=== PATIENT | male | born 1930 | race Caucasian/White ===

== ENCOUNTER 2016-11-14 02:31 | Emergency (ER) | payer MEDICARE, OTHER ==
[~2016-11-14] VITALS: Ht 182.9 cm; Wt 108.9 kg
[~2016-11-14 02:31] MED LIST: ACET325T49; ACET650S13; ALPR-557 PO; ALPR.25T; ALPR.25T PO; ALPR.5T; ALPR0.2550 PO; AML5T; AML5T PO; AMLO1CAP4 PO; AMLO5TAB2 PO; ASCO500T20 PO; BSC10SU; CALC-656 PO; CALC-793 PO; CALC1TAB88; CEFD300C3 PO; CENTRUM SILVER PO; CLD600T; CLON1TAB36; CLPD75T PO; DCS100C; ESCT10T; ESCT10T PO; FRS325T; FSNP20T; GARLIC; GFN600TCR; HYDR-3714; LEVO500T69 PO; LISI40TA PO; LOTREL; LVF500T; LVF500T PO; LYCOPENE; MAGN-47; MECL-124 PO; MECL25TA56 PO; METH4TAB PO; METR500T PO; MULT-974 PO; MULT1TAB63; NAPR220T76 PO; NEOM15OI26; PHEN10TA PO; PHN100C; PNT40TEC; POTA10CA16; PS30T; SCOP1PAT TD; SERT25TA PO; SULF1TAB35 PO; THM100T; WRF5T PO; [UNRECOGNIZED DRUG - CODE]; [UNRECOGNIZED DRUG - OTHER]
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
--- OUTSIDE RECORDS SUMMARY | 2016-11-14 02:38 | XMS REPORT | Continuity of Care Document ---
Author Author [facility] Organization [facility] Address Unknown Phone Unavailable Support Name Relationship Address Phone CAR HARRIS MD Caregiver [address], [address] [place] [address] MIRYAM ARVIZU DO Caregiver [address] [place] [address] CATA MILAN Next Of Kin [address] [place] [address] Insurance Providers Payer Name Policy Number Subscriber Name Relationship [employer] [id number] Armando Milan 17 Self / Same As Patient Enter Insurance Name [id number] Armando Milan 17 Self / Same As Patient Advance Directives Directive Response Recorded Date/Time Advance Directives Yes 09/29/14 9:20am Health Care Power of Complaint Manager Kwesi ELMORET 09/29/14 9:20am Organ Donor No 09/29/14 9:20am Resuscitation Status Full Code 09/29/14 9:20am Problems Medical Problems Problem Onset Date Status Bee sting Unknown Active Contusion of hip, right Unknown Active Medications Medication Dose Route Sig Days/Qty Instructions Order Date Discontinued Date Status Escitalopram Oxalate 05/22/07 04/26/10 Discontinued Amlodipine Besylate 05/22/07 05/11/08 Discontinued [Lotrel] 05/22/07 02/08/08 Discontinued Thiamine HCl 05/22/07 02/08/08 Discontinued Calcium/Vitamin D 05/22/07 10/21/09 Discontinued Clonazepam 05/22/07 02/08/08 Discontinued Alprazolam 05/22/07 02/08/08 Discontinued Fosinopril Sodium 05/22/07 10/21/09 Discontinued Multivitamins 05/22/07 02/08/08 Discontinued [Centrum Silver] 1 Tab PO DAILY 02/08/08 05/08/14 Discontinued Pseudoephedrine HCl 02/08/08 05/11/08 Discontinued Guaifenesin 02/08/08 05/11/08 Discontinued [Ec Garlic] 02/08/08 05/11/08 Discontinued Escitalopram Oxalate 02/08/08 05/11/08 Discontinued [Co Q 10 Enzyme] 02/08/08 05/03/09 Discontinued Alprazolam 02/08/08 04/26/10 Discontinued [Garlic Odorless] 05/11/08 04/26/10 Discontinued [Lycopene] 05/11/08 10/21/09 Discontinued [Lotrel] 05/11/08 10/21/09 Discontinued Trimethoprim/Sulfamethoxazole 1 Each PO TWICE A DAY 20 Qty FOR INFECTION 05/03/09 11/16/09 Discontinued Methylprednisolone 0 PO DIRECTED 1 Qty 05/03/09 11/16/09 Discontinued Levetiracetam (Keppra) 10/21/09 04/26/10 Discontinued Amlodipine Besylate 5 Mg PO DAILY 10/21/09 10/09/10 Discontinued Lisinopril (Zestril) 40 Mg PO DAILY 10/21/09 05/30/11 Discontinued Docusate Sodium 10/21/09 04/26/10 Discontinued Levofloxacin 10/21/09 04/26/10 Discontinued Potassium Chloride 10/21/09 04/26/10 Discontinued Magnesium Hydroxide 10/21/09 04/26/10 Discontinued Warfarin Sodium 5 Mg PO DAILY 10/21/09 05/08/14 Discontinued Ferrous Sulfate 10/21/09 04/26/10 Discontinued Pantoprazole Sodium 10/21/09 04/26/10 Discontinued Acetaminophen 10/21/09 04/26/10 Discontinued Acetaminophen 10/21/09 04/26/10 Discontinued Acetaminophen/Hydrocodone Bitart 10/21/09 04/26/10 Discontinued Bisacodyl 10/21/09 04/26/10 Discontinued Pseudoephedrine Hcl 10/21/09 04/26/10 Discontinued Neomycin/Polymyxin/Bacitracin 10/21/09 04/26/10 Discontinued Calcium Carbonate/Vitamin D3 10/21/09 04/26/10 Discontinued Phenytoin Sodium 11/16/09 04/26/10 Discontinued Meclizine HCl 1 Each PO QID PRN 60 Qty 11/16/09 04/26/10 Discontinued Alprazolam 1 Tab PO BEDTIME 04/26/10 05/08/14 Discontinued Calcium/Vitamin D 1 Tab PO DAILY 10/09/10 05/08/14 Discontinued Amlodipine/Benazepril HCl 1 Each PO DAILY 10/09/10 03/07/12 Discontinued Phenylephrine Hcl 10 Mg PO NEEDED 10/09/10 03/07/12 Discontinued Alprazolam 1 Each PO NEEDED 10/09/10 03/07/12 Discontinued Naproxen Sodium 220 Mg PO DAILY PRN PAIN 10/09/10 Active Escitalopram Oxalate 1 Each PO NEEDED 10/09/10 02/06/11 Discontinued Sertraline Hcl 25 Mg PO DAILY 10/09/10 05/30/11 Discontinued Sertraline HCl 25 Mg PO DAILY 02/06/11 Active Scopolamine HCl 1 Ea TD Q3D 3 Qty FOR DIZZINESS 02/06/11 03/07/12 Discontinued Meclizine HCl 1 - 2 Tab PO Q 4-6 HOURS PRN 30 Qty 02/06/11 03/07/12 Discontinued Scopolamine HCl 1 Ea TD Q3D 3 Qty FOR DIZZINESS 02/20/11 03/07/12 Discontinued Meclizine HCl 1 Each PO QID PRN 30 Qty 02/20/11 05/08/14 Discontinued Amlodipine Besylate (Norvasc 5 Mg) 5 Mg PO DAILY 03/07/12 Active Metronidazole 1 Each PO THREE TIMES A DAY 30 Qty FOR INFECTION 12/21/12 04/08/14 Discontinued Levofloxacin 1 Each PO DAILY 10 Qty 12/21/12 04/08/14 Discontinued Alprazolam 0.25 Mg PO TWICE A DAY PRN ANXIETY 05/08/14 Active Calcium Carbonate/Vitamin D3 1 Tab PO DAILY 05/08/14 Active Clopidogrel Bisulfate 75 Mg PO DAILY 05/08/14 Active Multivitamin 1 Tab PO DAILY 05/08/14 Active Ascorbic Acid 500 Mg PO DAILY 05/08/14 Active Levofloxacin 500 Mg PO DAILY@11 7 Qty 05/09/14 Active Cefdinir (Omnicef) 1 Each PO TWICE A DAY 20 Qty 05/10/14 Active Social History Social History Problem Response Recorded Date/Time Alcohol Use Denies Use 09/29/2014 9:20am Recreational Drug Use No 09/29/2014 9:20am Recent Foreign Travel No 05/15/2014 3:11pm Recent Infectious Disease Exposure No 05/15/2014 3:11pm Hospitalization with Isolation Denies 05/15/2014 3:11pm Smoking Status Never a Smoker 09/29/2014 9:20am Query Response Start Date Stop Date Smoking Status Never a Smoker Hospital Discharge Instructions No hospital discharge instructions. Plan of Care No plan of care. Functional Status No functional status results. Allergies, Adverse Reactions, Alerts Allergen Type Severity Reaction Status Last Updated Penicillins ([id number]) Allergy Mild RASH Active 03/13/12 Sulfa (Sulfonamide Antibiotics) ([id number]) Allergy Unknown Active 01/07 Tetanus Vaccines & Toxoid ([id number]) Allergy Unknown Active 05/01/10 morphine Adverse Reaction Mild N & V Active 05/30/11 meperidine Allergy Unknown Active 05/01/10 latex Allergy Unknown Active 05/22/07 ALLERGY TO TAPE & PLASTIC TAPE Allergy Intermediate SKIN BREAKS OUT Active 05/30/11 EPIDURAL Allergy Unknown Active 05/30/11 Immunizations Name Given Type Date of Pneumonia Vaccine 09/19/09 Historical Date of Influenza Vaccine 06/19/14 Historical Vital Signs Acute Vital Signs Vital Response Date/Time Temperature (Fahrenheit) 97.4 degrees F (97.6 - 99.5) Temperature (Calculated Celsius) 36.57787 degrees C (36.4 - 37.5) Temperature Source Temporal Pulse Rate (adult) 62 bpm (60 - 90) Respiratory Rate 20 bpm (12 - 24) O2 Sat by Pulse Oximetry 92 % (88 - 100) Blood Pressure 173/99 mm Hg Blood Pressure 173/99 mm Hg Pain Pain Intensity 0 Pain Pain Intensity 0 Height (Feet) 5 feet Height (Inches) 10 inches Height (Calculated Centimeters) 177.004460 cm Weight (Pounds) 180 pounds Weight (Calculated Kilograms) 81.242718 kilograms Calculated BMI 25.82 Results Laboratory Results Test Name Result Units Flags Reference Collection Date/Time Result Date/ Time Comments White Blood Count 5.7 10^3/uL 4.3-11.0 09/29/2014 9:26am 09/29/2014 9: 37am Red Blood Count 5.24 10^6/uL 4.35-5.85 09/29/2014 9:26am 09/29/2014 9: 37am Hemoglobin 16.4 G/DL 13.3-17.7 09/29/2014 9:26am 09/29/2014 9:37am Hematocrit 48 % 40-54 09/29/2014 9:09/29/2014 9:37am Mean Corpuscular Volume 91 FL 80-99 09/29/2014 9:09/29/2014 9: 37am Mean Corpuscular Hemoglobin 31 PG 25-34 09/29/2014 9:09/29/2014 9: 37am Mean Corpuscular Hemoglobin Concent 35 G/DL 32-36 09/29/2014 9:07/2015 9:37am Red Cell Distribution Width 13.6 % 10.0-14.5 09/29/2014 9:2014 9:37am Platelet Count 183 10^3/uL 130-400 09/29/2014 9:09/29/2014 9:37am Mean Platelet Volume 10.1 FL 7.4-10.4 09/29/2014 9:09/29/2014 9: 37am Neutrophils (%) (Auto) 73 % 42-75 09/29/2014 9:09/29/2014 9:37am Lymphocytes (%) (Auto) 16 % 12-44 09/29/2014 9:09/29/2014 9:37am Monocytes (%) (Auto) 10 % 0-12 09/29/2014 9:09/29/2014 9:37am Eosinophils (%) (Auto) 1 % 0-10 09/29/2014 9:09/29/2014 9:37am Basophils (%) (Auto) 0 % 0-10 09/29/2014 9:09/29/2014 9:37am Neutrophils # (Auto) 4.1 X 10^3 1.8-7.8 09/29/2014 9:09/29/2014 9: 37am Lymphocytes # (Auto) 0.9 X 10^3 L 1.0-4.0 09/29/2014 9:09/29/2014 9: 37am Monocytes # (Auto) 0.5 X 10^3 0.0-1.0 09/29/2014 9:09/29/2014 9: 37am Eosinophils # (Auto) 0.1 10^3/uL 0.0-0.3 09/29/2014 9:09/29/2014 9 :37am Basophils # (Auto) 0.0 10^3/uL 0.0-0.1 09/29/2014 9:09/29/2014 9: 37am Sodium Level 143 MMOL/L 135-145 09/29/2014 9:09/29/2014 10:00am Potassium Level 3.9 MMOL/L 3.6-5.0 09/29/2014 9:09/29/2014 10: 00am Chloride Level 110 MMOL/L H 98-107 09/29/2014 9:09/29/2014 10:00am Carbon Dioxide Level 22 MMOL/L 21-32 09/29/2014 9:09/29/2014 10: 00am Blood Urea Nitrogen 25 MG/DL H 7-18 09/29/2014 9:09/29/2014 10:00am Creatinine 0.98 MG/DL 0.60-1.30 09/29/2014 9:09/29/2014 10:00am BUN/Creatinine Ratio 09/29/2014 9:09/29/2014 10:00am Estimat Glomerular Filtration Rate > 60 09/29/2014 9:2014 10:00am GFR INTERPRETIVE DATA UNITS FOR ESTIMATED GFR (eGFR): mL/min/1.73 M2 REFERENCE RANGE FOR ESTIMATED GFR (eGFR) eGFR NORMAL eGFR >60 MODERATELY DECREASED eGFR 30-59 SEVERLY DECREASED eGFR 15-29 KIDNEY FAILURE <15 (OR DIALYSIS) Glucose Level 98 MG/DL 70-105 09/29/2014 9:09/29/2014 10:00am Calcium Level 9.4 MG/DL 8.5-10.1 09/29/2014 9:09/29/2014 10:00am Total Bilirubin 0.9 MG/DL 0.1-1.0 09/29/2014 9:09/29/2014 10:00am Alkaline Phosphatase 68 U/L 40-136 09/29/2014 9:09/29/2014 10: 00am Aspartate Amino Transf (AST/SGOT) 19 U/L 5-34 09/29/2014 9:2014 10:00am Alanine Aminotransferase (ALT/SGPT) 15 U/L 0-55 09/29/2014 9:26am 09/29 10:00am Total Protein 6.5 G/DL 6.4-8.2 09/29/2014 9:26am 09/29/2014 10:00am Albumin 3.8 G/DL 3.2-4.5 09/29/2014 9:26am 09/29/2014 10:00am Procedures No known history of procedures. Encounters Encounter Location Date/Time Registered Emergency Room [facility] 09/29/14 9:21am Recent Diagnosis
[2016-11-14] MEDS ORDERED: LIDOCAINE PF 1% 5 ML (XYLOCAINE) AMP INJ ONE (03:00)
[2016-11-14] MEDS ORDERED: ACETAMINOPHEN 500 MG TAB (TYLENOL) ONE (04:15)
[2016-11-14] MEDS ORDERED: ACETAMINOPHEN 500 MG TAB (TYLENOL) PO ONE (04:30)
[2016-11-14 04:36] VITALS: BP 129/68
--- NOTE | 2016-11-14 08:31 | Diagnostic Imaging Report ---
PROCEDURE: CT head, face, and cervical spine without contrast. TECHNIQUE: Multiple contiguous axial images were obtained through the head, neck, and facial bones without the use of intravenous contrast. Sagittal and coronal reformations through the cervical spine and facial bones were also performed. INDICATION: Head, neck and face pain after a fall. COMPARISON: 04/04/2015. FINDINGS: There is prominence of ventricles and sulci. There is mild chronic microvascular ischemic disease. There is no hydrocephalus. There is no midline shift. There is no intracranial mass, hemorrhage or extra-axial fluid collection. There are no displaced facial bone fractures. The frontal, ethmoid, sphenoid and maxillary sinuses are clear. The mastoid air cells are clear. The zygomatic arches are intact. The globes and intraorbital structures are unremarkable. The nasal bones are intact. There is straightening of normal cervical lordosis. The vertebral body heights are well-maintained. There is multilevel degenerative disc disease particularly at C4-5, C5-6 and C6-7. This is associated with endplate sclerosis and marginal osteophytosis. There is no fracture or traumatic subluxation. The odontoid is intact. The lateral masses are well-aligned. The prevertebral soft tissues are within normal limits. The lung apices are clear. IMPRESSION: Atrophy and mild chronic microvascular ischemic disease without acute intracranial abnormality. No displaced facial bone fractures. Moderate cervical spondylosis and multilevel degenerative disc disease without acute fracture or traumatic subluxation. Dictated by: Dictated on workstation # [id number]
== END 2016-11-14 04:25 ==
LOC: EDUNIT# 02:31 → ER 02:33
DX: S01.112A Laceration without foreign body of left eyelid and periocular area, initial encounter (principal); M47.812 Spondylosis without myelopathy or radiculopathy, cervical region; M50.321 Other cervical disc degeneration at C4-C5 level; Y92.121 Bathroom in nursing home as the place of occurrence of the external cause; W18.30XA Fall on same level, unspecified, initial encounter; Y99.8 Other external cause status
CPT/HCPCS: 12053; 70450; 70486; 72125

== ENCOUNTER → 2017-01-03 | Outpatient (CLI) | payer MEDICARE, OTHER ==
--- NOTE | 2017-01-03 10:57 | Diagnostic Imaging Report ---
EXAMINATION: Modified barium swallow. Indication: Dysphagia Different consistencies of fluid and food was given mixed with barium and swallowing was visualized under fluoroscopy. FLUOROSCOPY TIME: One minute and 18 seconds FINDINGS: There is aspiration seen with thin liquids. Minimal transient penetration with thick liquids. IMPRESSION: Aspiration seen with thin liquids. Please refer to speech therapist's report for additional details . Dictated by: Dictated on workstation # [id number]
== END ==
LOC: RAD 10:06
PROVIDERS: ATTEND Nurse Practitioner
DX: T17.908A Unspecified foreign body in respiratory tract, part unspecified causing other injury, initial encounter (principal); Y84.4 Aspiration of fluid as the cause of abnormal reaction of the patient, or of later complication, without mention of misadventure at the time of the procedure
CPT/HCPCS: 74230

== ENCOUNTER → 2017-05-13 | Outpatient (CLI) | payer MEDICARE, OTHER | LOC: CARD 11:42 | PROVIDERS: ATTEND Physician Assistant | DX: I25.10 Atherosclerotic heart disease of native coronary artery without angina pectoris (principal); I10 Essential (primary) hypertension; I47.2 Ventricular tachycardia; F41.9 Anxiety disorder, unspecified | CPT/HCPCS: 93306 ==

== ENCOUNTER 2018-03-05 09:00 | Emergency (ER) | payer MEDICARE, OTHER ==
[~2018-03-05] VITALS: Ht 182.9 cm; Wt 97.1 kg
[2018-03-05 10:48] VITALS: BP 129/72
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
--- NOTE | 2018-03-05 11:11 | Diagnostic Imaging Report ---
Procedure: CT head without contrast. Technique: Multiple contiguous axial images were obtained through the brain without the use of intravenous contrast. Indication: Patient fell this morning striking right side of head with positive loss of consciousness, head injury. Comparison: 11/14/2016. Discussion: Diffuse brain volume loss is stable, likely age related. White matter hypoattenuation is nonspecific though not greater than expected for age related chronic small vessel ischemic disease, stable. No acute intracranial hemorrhage, mass, midline shift, hydrocephalus. The orbits, sinuses, mastoid air cells, and calvarium are unremarkable. Impression: 1. Senescent changes as described. No acute intracranial abnormality. Dictated by: Dictated on workstation # [id number]
--- NOTE | 2018-03-05 11:15 | Diagnostic Imaging Report ---
PATIENT HISTORY: Fall with right knee pain. 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 No hardware complication is seen. No acute fracture is seen in the right knee. Alignment appears normal. There is a small right knee joint effusion. There is calcific atherosclerosis. Joint bodies are seen posteriorly. IMPRESSION: 1. Right total knee arthroplasty without hardware complication or acute osseous abnormality seen. 2. Small right knee joint effusion. Dictated by: Dictated on workstation # [id number]
--- OUTSIDE RECORDS SUMMARY | 2018-03-05 16:35 | XMS REPORT | Continuity of Care Document ---
Author Author [facility] Address Unknown Phone Unavailable Allergies Active Description Code Type Severity Reaction Onset Reported/Identified Relationship to Patient Clinical Status Yes latex [id number] Drug Allergy Unknown N/A 05/22/2007 Yes meperidine [id number] Drug Allergy Unknown N/A 05/01/2010 Yes Sulfa (Sulfonamide Antibiotics) [id number] Drug Allergy Unknown N/A 2009 Yes Tetanus Vaccines Toxoid [id number] Drug Allergy Unknown N/A 05/01/2010 Yes Tetanus Vaccines and Toxoid [id number] Drug Allergy Unknown N/A 2009 Yes morphine Drug Allergy N/A N/A 05/14/2011 Yes Penicillins Drug Allergy N/A N/A 05/14/2011 Yes morphine Drug Allergy 05/14/2011 Yes Penicillins Drug Allergy 05/14/2011 Yes ALLERGY TO TAPE PLASTIC TAPE ALLERGY TO TAPE PLASTIC TAPE Moderate SKIN BREAKS OUT 05/30/2011 Yes morphine [id number] Drug Allergy Mild N V 05/30/2011 Yes EPIDURAL EPIDURAL Unknown N/A 05/30/2011 Yes Penicillins [id number] Drug Allergy Mild RASH 03/13/2012 Yes latex Drug Allergy N/A N/A 06/20/2014 Medications There is no data. 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 06/03/2010 MARY GRACE DON APRN 300.00 AN ANXIETY UNSPEC 06/03/2010 MARY GRACE DON APRN 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 06/03/2010 MARY GRACE DON APRN 300.00 AN ANXIETY UNSPEC 06/03/2010 MARY GRACE DON APRN 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 06/03/2010 MARY GRACE DON APRN 300.00 AN ANXIETY UNSPEC 06/03/2010 MARY GRACE DON APRN 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 06/03/2010 MARY GRACE DON APRN 300.00 AN ANXIETY UNSPEC 06/03/2010 MARY GRACE DON APRN 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 06/03/2010 MARY GRACE DON APRN 300.00 AN ANXIETY UNSPEC 07/03/2010 MARY GRACE DON APRN 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 ANXIETY 07/03/2010 MARY GRACE DON APRN 311 DEPRESSIVE DISORDER NOS 07/03/2010 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 ANXIETY 07/03/2010 311 DEPRESSIVE DISORDER NOS 07/03/2010 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 ANXIETY 07/03/2010 311 DEPRESSIVE DISORDER NOS 07/03/2010 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 ANXIETY 07/03/2010 311 DEPRESSIVE DISORDER NOS 07/03/2010 MARY GRACE DON APRN 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 ANXIETY 07/03/2010 MARY GRACE DON APRN 311 DEPRESSIVE DISORDER NOS 07/03/2010 MARY GRACE DON APRN 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 ANXIETY 07/03/2010 MARY GRACE DON APRN 311 DEPRESSIVE DISORDER NOS 07/03/2010 MARY GRACE DON APRN 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 ANXIETY 07/03/2010 MARY GRACE DON APRN 311 DEPRESSIVE DISORDER NOS 07/03/2010 MARY GRACE DON APRN 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 ANXIETY 07/03/2010 MARY GRACE DON APRN 311 DEPRESSIVE DISORDER NOS 07/03/2010 MARY GRACE DON APRN 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 ANXIETY 07/03/2010 MARY GRACE DON APRN 311 DEPRESSIVE DISORDER NOS 09/03/2010 MARY GRACE DON APRN 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 09/03/2010 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 09/03/2010 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 09/03/2010 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 09/03/2010 ARIAN RIVAS, MARY GRACE BELLO 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 09/03/2010 ARIAN RIVAS, MARY GRACE BELLO 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 09/03/2010 ARIAN RIVAS, MARY GRACE BELLO 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 09/03/2010 ARIAN RIVAS, MARY GRACE BELLO 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 09/03/2010 ARIAN RIVAS, MARY GRACE BELLO 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 05/30/2011 Ot 429.9 HEART DISEASE NOS 05/30/2011 Ot 435.9 TRANS CEREB ISCHEMIA NOS 05/30/2011 Ot 780.79 OTH MALAISE FATIGUE 05/30/2011 Ot V58.61 ANTICOAGULANTS,LT,CURRENT USE 05/30/2011 Ot V58.69 OTH MED,LT, CURRENT USE 03/13/2012 Ot 333.94 RESTLESS LEGS SYNDROME 03/13/2012 Ot 401.9 HYPERTENSION NOS 03/13/2012 Ot 414.01 CORONARY ATHEROSCLEROSIS OF [place] CORON 03/13/2012 Ot 440.1 RENAL ARTERY ATHEROSCLER 03/13/2012 Ot 530.81 ESOPHAGEAL REFLUX 03/13/2012 Ot 715.90 OSTEOARTHROS NOS-UNSPEC 03/13/2012 Ot 735.3 HALLUX MALLEUS 03/13/2012 Ot V45.81 AORTOCORONARY BYPASS 03/13/2012 Ot V57.1 PHYSICAL THERAPY NEC 12/21/2012 Ot 558.9 NONINF GASTROENTERIT NEC 12/21/2012 Ot 599.0 URIN TRACT INFECTION NOS 12/21/2012 Ot 787.91 DIARRHEA 12/21/2012 Ot V58.61 ANTICOAGULANTS,LT,CURRENT USE 12/21/2012 Ot V58.69 OTH MED,LT, CURRENT USE 04/08/2014 HANNAH SIDDIQUI DO Ot 244.9 HYPOTHYROIDISM NOS 04/08/2014 HANNAH SIDDIQUI DO Ot 300.00 ANXIETY STATE NOS 04/08/2014 HANNAH SIDDIQUI DO Ot 311 DEPRESSIVE DISORDER NEC 04/08/2014 HANNAH SIDDIQUI DO Ot 414.01 CORONARY ATHEROSCLEROSIS OF [place] CORON 04/08/2014 HANNAH SIDDIQUI DO Ot 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 04/08/2014 HANNAH SIDDIQUI DO Ot 530.81 ESOPHAGEAL REFLUX 04/08/2014 HANNAH SIDDIQUI DO Ot 716.90 ARTHROPATHY NOS-UNSPEC 04/08/2014 HANNAH SIDDIQUI DO Ot 729.5 PAIN IN LIMB 04/08/2014 HANNAH SIDDIQUI DO Ot 729.81 SWELLING OF LIMB 04/08/2014 HANNAH SIDDIQUI DO Ot 780.4 DIZZINESS AND GIDDINESS 04/08/2014 HANNAH SIDDIQUI DO Ot 782.3 EDEMA 04/08/2014 HANNAH SIDDIQUI DO Ot V12.54 PERSONAL HX OF TIA, CEREBRAL INFARCTION 04/08/2014 HANNAH SIDDIQUI DO Ot 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 04/08/2014 HANNAH SIDDIQUI DO Ot V45.89 POSTSURGICAL STATES NEC 04/08/2014 HANNAH SIDDIQUI DO Ot V58.61 ANTICOAGULANTS,LT,CURRENT USE 04/08/2014 HANNAH SIDDIQUI DO Ot V58.69 OTH MED,LT,CURRENT USE 05/09/2014 CHRIS FERRELL MD Ot 272.4 HYPERLIPIDEMIA NEC/NOS 05/09/2014 CHRIS FERRELL MD Ot 401.9 HYPERTENSION NOS 05/09/2014 CHRIS FERRELL MD Ot 414.01 CORONARY ATHEROSCLEROSIS OF [place] CORON 05/09/2014 CHRIS FERRELL MD Ot 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 NODE DYSFUNCT 05/09/2014 CHRIS FERRELL MD Ot 996.72 OTH COMPLICATIONS DUE TO OTH CARD DEVICE 05/09/2014 CHRIS FERRELL MD Ot E878.1 ABN REACT-ARTIF IMPLANT 05/09/2014 CHRIS FERRELL MD Ot 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.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 05/09/2014 CHRIS FERRELL MD, Ot V58.61 ANTICOAGULANTS,LT,CURRENT USE 05/09/2014 CHRIS FERRELL MD, Ot V58.69 OTH MED,LT,CURRENT USE 05/10/2014 Ot 709.8 SKIN DISORDERS NEC 05/10/2014 Ot V45.89 POSTSURGICAL STATES NEC 05/12/2014 CAR HARRIS MD Ot 989.5 TOXIC EFFECT VENOM 05/12/2014 CAR HARRIS MD Ot E000.8 OTHER EXTERNAL CAUSE STATUS 05/12/2014 CAR HARRIS MD Ot E905.3 HORNET/WASP/BEE STING 05/15/2014 SIVA WHALEN APRN Ot 719.45 JOINT PAIN-PELVIS 05/15/2014 SIVA WHALEN APRN Ot 924.01 CONTUSION OF HIP 05/15/2014 SIVA WHALEN APRN Ot E000.8 OTHER EXTERNAL CAUSE STATUS 05/15/2014 SIVA WHALEN APRN Ot E928.9 ACCIDENT NOS 08/14/2014 MIRYAM ARVIZU DO Ot 443.9 09/09/2014 MIRYAM ARVIZU DO Ot 443.9 09/29/2014 CAR HARRIS MD Ot 723.1 CERVICALGIA 09/29/2014 CAR HARRIS MD Ot 924.8 MULTIPLE CONTUSIONS NEC 09/29/2014 CAR HARRIS MD Ot 959.9 INJURY-SITE NOS 09/29/2014 CAR HARRIS MD Ot E000.8 OTHER EXTERNAL CAUSE STATUS 09/29/2014 CAR HARRIS MD Ot E849.0 ACCIDENT IN HOME 09/29/2014 CAR HARRIS MD Ot E888.9 FALL NOS 03/20/2015 CHRIS FERRELL MD Ot 401.9 03/20/2015 CHRIS FERRELL MD Ot 414.00 03/20/2015 CHRIS FERRELL MD Ot 427.81 03/20/2015 CHRIS FERRELL MD Ot 435.9 03/26/2015 CHRIS FERRELL MD Ot 401.9 03/26/2015 CHRIS FERRELL MD Ot 414.00 03/26/2015 CHRIS FERRELL MD Ot 427.81 03/26/2015 CHRIS FERRELL MD Ot 435.9 04/10/2015 CHRIS FERRELL MD Ot 401.9 04/10/2015 CHRIS FERRELL MD Ot 414.00 04/10/2015 CHRIS FERRELL MD Ot 427.81 04/10/2015 CHRIS FERRELL MD Ot 435.9 04/10/2015 CHRIS FERRELL MD Ot 401.9 04/10/2015 CHRIS FERRELL MD Ot 414.00 04/10/2015 CHRIS FERRELL MD Ot 427.81 04/10/2015 GHASSAN MARCANO, CHRIS Gonzalez Ot 435.9 04/28/2015 LUHLUCIANA BUILDING PERFORMANCE SPECIALIST Ot 781.2 04/28/2015 ARVIZULUCIANA BUILDING PERFORMANCE SPECIALIST Ot 784.0 04/28/2015 ARVIZULUCIANA BUILDING PERFORMANCE SPECIALIST Ot V15.88 05/13/2015 ARVIZULUCINAA BUILDING PERFORMANCE SPECIALIST Ot 781.2 05/13/2015 ARVIZULUCIANA BUILDING PERFORMANCE SPECIALIST Ot 784.0 05/13/2015 LUHLUCIANA BUILDING PERFORMANCE SPECIALIST Ot V15.88 03/03/2016 CORINNE ALMARAZ Ot I10 ESSENTIAL (PRIMARY) HYPERTENSION 03/03/2016 CORINNE ALMARAZ Ot I25.10 ATHSCL HEART DISEASE OF [place] CORONARY 03/03/2016 CORINNE ALMARAZ Ot 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 03/03/2016 CORINNE ALMARAZ Ot R06.02 SHORTNESS OF BREATH 03/05/2016 CORINNE ALMARAZ K Ot I10 ESSENTIAL (PRIMARY) HYPERTENSION 03/05/2016 CORINNE ALMARAZ Ot I25.10 ATHSCL HEART DISEASE OF [place] CORONARY 03/05/2016 CORINNE ALMARAZ Ot 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 03/05/2016 CORINNE ALMARAZ Ot R06.02 SHORTNESS OF BREATH 03/24/2016 CORINNE ALMARAZ Ot I10 ESSENTIAL (PRIMARY) HYPERTENSION 03/24/2016 CORINNE ALMARAZ Ot I25.10 ATHSCL HEART DISEASE OF [place] CORONARY 03/24/2016 DANIELA ALMARAZTH K Ot 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 03/24/2016 CORINNE ALMARAZ K Ot R06.02 SHORTNESS OF BREATH 04/05/2016 CORINNE ALMARAZ K Ot I10 ESSENTIAL (PRIMARY) HYPERTENSION 04/05/2016 CORINNE ALMARAZ K Ot I25.10 ATHSCL HEART DISEASE OF [place] CORONARY 04/05/2016 DANIELA ALMARAZTH K Ot 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 04/05/2016 CORINNE ALMARAZ Ot R06.02 SHORTNESS OF BREATH 11/14/2016 MIRYAM AMARAL DO Ot M47.812 SPONDYLOSIS W/O MYELOPATHY OR RADICULOPA 11/14/2016 MIRYAM AMARAL DO Ot 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 11/14/2016 MIRYAM AMARAL DO Ot S01.112A LACERATION W/O FB OF LEFT EYELID AND PER 11/14/2016 MIRYAM AMARAL DO Ot W18.30XA FALL ON SAME LEVEL, UNSPECIFIED, INITIAL 11/14/2016 MIRYAM AMARAL DO Ot Y92.[address] 11/14/2016 MIRYAM AMARAL DO Ot Y99.8 OTHER EXTERNAL CAUSE STATUS 11/14/2016 Ot 553.20 VENTRAL HERNIA NOS 11/14/2016 Ot 562.10 DIVERTICULOSIS COLON (W/O MENT OF HEMORR 11/14/2016 Ot 789.09 ABDOMINAL PAIN, OTHER SPECIFIED SITE 11/14/2016 Ot 735.3 HALLUX MALLEUS 11/14/2016 Ot V72.83 EXAM PRE- OPERATIVE NEC 11/14/2016 Ot V74.8 SCREEN- BACTERIAL DIS NEC 11/14/2016 Ot 719.46 JOINT PAIN-L /LEG 11/14/2016 Ot 729.81 SWELLING OF LIMB 11/14/2016 LUCIANA SHAH REPAIRER [employer] Ot 721.2 THORACIC SPONDYLOSIS 11/14/2016 RIDARIK LUCIANA C REPAIRER [employer] Ot 737.30 IDIOPATHIC SCOLIOSIS 11/14/2016 LUCIANA SHAH Felisha REPAIRER [employer] Ot 789.00 ABDOMINAL PAIN, UNSPECIFIED SITE 11/14/2016 MIRYAM ARVIZU DO Ot 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 11/14/2016 MIRYAM ARVIZU DO Ot 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 11/14/2016 CHRIS FERRELL MD Ot 401.9 HYPERTENSION NOS 11/14/2016 CHRIS FERRELL MD Ot 414.00 CORON ATHEROSCLER NOS TYPE VESSEL, NATIV 11/14/2016 CHRIS FERRELL MD Ot 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 NODE DYSFUNCT 11/14/2016 CHRIS FERRELL MD Ot 435.9 TRANS CEREB ISCHEMIA NOS 11/14/2016 CHRIS FERRELL MD Ot 401.9 HYPERTENSION NOS 11/14/2016 CHRIS FERRELL MD Ot 414.00 CORON ATHEROSCLER NOS TYPE VESSEL, NATIV 11/14/2016 CHRIS FERRELL MD Ot 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 NODE DYSFUNCT 11/14/2016 CHRIS FERRELL MD Ot 435.9 TRANS CEREB ISCHEMIA NOS 11/14/2016 LUCIANA ARVIZU BUILDING PERFORMANCE SPECIALIST Ot 781.2 ABNORMALITY OF GAIT 11/14/2016 LUCIANA ARVIZU BUILDING PERFORMANCE SPECIALIST Ot 784.0 HEADACHE 11/14/2016 LUCIANA ARVIZU BUILDING PERFORMANCE SPECIALIST Ot V15.88 HISTORY OF FALL 11/14/2016 CORINNE ALMARAZ Ot I10 ESSENTIAL (PRIMARY) HYPERTENSION 11/14/2016 CORINNE ALMARAZ Ot I25.10 ATHSCL HEART DISEASE OF [place] CORONARY 11/14/2016 CORINNE ALMARAZ Ot 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 11/14/2016 CORINNE ALMARAZ Ot R06.02 SHORTNESS OF BREATH 11/16/2016 MIRYAM AMARAL DO Ot M47.812 SPONDYLOSIS W/O MYELOPATHY OR RADICULOPA 11/16/2016 MIRYAM AMARAL DO Ot 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 11/16/2016 MIRYAM AMARAL DO Ot S01.112A LACERATION W/O FB OF LEFT EYELID AND PER 11/16/2016 MIRYAM AMARAL DO Ot W18.30XA FALL ON SAME LEVEL, UNSPECIFIED, INITIAL 11/16/2016 MIRYAM AMARAL DO Ot Y92.[address] 11/16/2016 MIRYAM AMARAL DO Ot Y99.8 OTHER EXTERNAL CAUSE STATUS 11/25/2016 Ot 553.20 VENTRAL HERNIA NOS 11/25/2016 Ot 562.10 DIVERTICULOSIS COLON (W/O MENT OF HEMORR 11/25/2016 Ot 789.09 ABDOMINAL PAIN, OTHER SPECIFIED SITE 11/25/2016 Ot 735.3 HALLUX MALLEUS 11/25/2016 Ot V72.83 EXAM PRE- OPERATIVE NEC 11/25/2016 Ot V74.8 SCREEN- BACTERIAL DIS NEC 11/25/2016 Ot 719.46 JOINT PAIN-L /LEG 11/25/2016 Ot 729.81 SWELLING OF LIMB 11/25/2016 ULCIANA SHAH REPAIRER [employer] Ot 721.2 THORACIC SPONDYLOSIS 11/25/2016 LUCIANA SHAH REPAIRER [employer] Ot 737.30 IDIOPATHIC SCOLIOSIS 11/25/2016 LUCIANA SHAH REPAIRER [employer] Ot 789.00 ABDOMINAL PAIN, UNSPECIFIED SITE 11/25/2016 MIRYAM ARVIZU DO Ot 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 11/25/2016 MIRYAM ARVIZU DO Ot 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 11/25/2016 CHRIS FERRELL MD Ot 401.9 HYPERTENSION NOS 11/25/2016 CHRIS FERRELL MD Ot 414.00 CORON ATHEROSCLER NOS TYPE VESSEL, NATIV 11/25/2016 CHRIS FERRELL MD Ot 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 NODE DYSFUNCT 11/25/2016 CHRIS FERRELL MD Ot 435.9 TRANS CEREB ISCHEMIA NOS 11/25/2016 CHRIS FERRELL MD Ot 401.9 HYPERTENSION NOS 11/25/2016 CHRIS FERRELL MD Ot 414.00 CORON ATHEROSCLER NOS TYPE VESSEL, NATIV 11/25/2016 CHRIS FERRELL MD Ot 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 NODE DYSFUNCT 11/25/2016 CHRIS FERRELL MD Ot 435.9 TRANS CEREB ISCHEMIA NOS 11/25/2016 LUCIANA ARVIZU BUILDING PERFORMANCE SPECIALIST Ot 781.2 ABNORMALITY OF GAIT 11/25/2016 LUCIANA ARVIZU BUILDING PERFORMANCE SPECIALIST Ot 784.0 HEADACHE 11/25/2016 LUCIANA ARVIZU BUILDING PERFORMANCE SPECIALIST Ot V15.88 HISTORY OF FALL 11/25/2016 CORINNE ALMARAZ Ot I10 ESSENTIAL (PRIMARY) HYPERTENSION 11/25/2016 CORINNE ALMARAZ Ot I25.10 ATHSCL HEART DISEASE OF [place] CORONARY 11/25/2016 CORINNE ALMARAZ Ot 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 11/25/2016 CORINNE ALMARAZ Ot R06.02 SHORTNESS OF BREATH 12/27/2016 CORINNE ALMARAZ Ot I10 ESSENTIAL (PRIMARY) HYPERTENSION 12/27/2016 MEJIAS-GLEY PA, CORINNE K Ot I25.10 ATHSCL HEART DISEASE OF [place] CORONARY 12/27/2016 CORINNE ALMARAZ Ot 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 12/27/2016 CORINNE ALMARAZ Ot R06.02 SHORTNESS OF BREATH 01/03/2017 YESICA HONG APRN Ot Y84.4 ASPIRATION OF FLUID CAUSE ABN REACT/COMP 01/03/2017 YESICA HONG R REPAIRER [employer] Ot Y84.4 ASPIRATION OF FLUID CAUSE ABN REACT/COMP 01/03/2017 GELY YESICA R REPAIRER [employer] Ot Y84.4 ASPIRATION OF FLUID CAUSE ABN REACT/COMP 01/05/2017 LUANNE HONGN R REPAIRER [employer] Ot T17.908A UNSP FB IN RESP TRACT, PART UNSP CAUSING 01/05/2017 YESICA HONG R REPAIRER [employer] Ot Y84.4 ASPIRATION OF FLUID CAUSE ABN REACT/COMP 01/31/2017 YESICA HONG R REPAIRER [employer] Ot T17.908A UNSP FB IN RESP TRACT, PART UNSP CAUSING 01/31/2017 YESICA HONG R REPAIRER [employer] Ot Y84.4 ASPIRATION OF FLUID CAUSE ABN REACT/COMP 02/21/2017 YESICA HONG R REPAIRER [employer] Ot T17.908A UNSP FB IN RESP TRACT, PART UNSP CAUSING 02/21/2017 YESICA HONG R REPAIRER [employer] Ot Y84.4 ASPIRATION OF FLUID CAUSE ABN REACT/COMP 06/03/2017 CORINNE ALMARAZ Ot F41.9 ANXIETY DISORDER, UNSPECIFIED 06/03/2017 CORINNE ALMARAZ Ot I10 ESSENTIAL (PRIMARY) HYPERTENSION 06/03/2017 CORINNE ALMARAZ Ot I25.10 ATHSCL HEART DISEASE OF [place] CORONARY 06/03/2017 CORINNE ALMARAZ Ot 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 07/04/2017 CORINNE ALMARAZ Ot F41.9 ANXIETY DISORDER, UNSPECIFIED 07/04/2017 CORINNE ALMARAZ Ot I10 ESSENTIAL (PRIMARY) HYPERTENSION 07/04/2017 CORINNE ALMARAZ Ot I25.10 ATHSCL HEART DISEASE OF [place] CORONARY 07/04/2017 CORINNE ALMARAZ Ot 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 Procedures Code Description [place] [address] PSYCH PHARM MGMT 10/09/2012 Results There is no data. Encounters ACCT No. Visit Date/Time Discharge Status Pt. Type Provider Facility Loc./Unit Complaint [id number] 06/20/2014 12:09:00 06/20/2014 23:59:59 CLS Outpatient MARY GRACE DON APRN [id number] 05/15/2014 16:37:00 05/15/2014 23:59:59 CLS Outpatient MARY GRACE DON APRN [id number] 01/18/2014 10:34:00 01/18/2014 23:59:59 CLS Outpatient MARY GRACE DON APRN [id number] 08/31/2013 10:57:00 08/31/2013 23:59:59 CLS Outpatient MARY GRACE DON APRN [id number] 06/13/2013 12:46:00 06/13/2013 23:59:59 CLS Outpatient MARY GRACE DON APRN [id number] 12/23/2012 10:01:00 12/23/2012 23:59:59 CLS Outpatient [id number] 10/09/2012 12:49:00 10/09/2012 23:59:59 CLS Outpatient MARY GRACE DON APRN [id number] 04/19/2013 15:06:00 Document Registration [id number] 02/26/2013 15:06:00 Document Registration [id number] 05/13/2017 11:42:00 05/13/2017 23:59:59 CLS Outpatient CORINNE ALMARAZ [facility] CARD CAD [id number] 01/03/2017 10:06:00 01/03/2017 23:59:59 CLS Outpatient YESICA HONG REPAIRER [employer] [facility] RAD ASPIRATION [id number] 11/14/2016 02:33:00 11/14/2016 04:25:00 DIS Emergency MIRYAM AMARAL DO [facility] ER FALL [id number] 03/02/2016 11:30:00 03/02/2016 23:59:59 CLS Outpatient CORINNE ALMARAZ [facility] CARD CAD,HTN,NSVT ,SOB [id number] 04/04/2015 14:44:00 04/04/2015 23:59:59 CLS Outpatient ARVIZULUCIANA CORDOVA BUILDING PERFORMANCE SPECIALIST [facility] RAD GOIT INSTABILITY HEADACHE [id number] 03/04/2015 11:12:00 03/04/2015 23:59:59 CLS Outpatient CHRIS FERRELL MD [facility] CARD CAD,HTN,SS,TIA [id number] 02/28/2015 11:14:00 02/28/2015 23:59:59 CLS Outpatient DEYSI WARNER REPAIRER [employer] [facility] QUICK [id number] 02/26/2015 08:16:00 02/26/2015 23:59:59 CLS Outpatient CHRIS FERRELL MD [facility] CARD CAD,HTN,SS,TIA [id number] 09/29/2014 09:21:00 09/29/2014 10:58:00 DIS Emergency CAR HARRIS MD [facility] ER ALTERED MENTAL STATUS [id number] 07/22/2014 09:02:00 07/22/2014 23:59:59 CLS Outpatient MIRYAM ARVIZU DO [facility] RAD PVD [id number] 07/16/2014 09:04:00 07/16/2014 23:59:59 CLS Outpatient MIRYAM ARVIZU DO [facility] RAD 443.90,CLAUDICATION [id number] 05/15/2014 14:58:00 05/15/2014 15:59:00 DIS Emergency SIVA WHALEN APRN [facility] ER RIGHT HIP PAIN [id number] 05/12/2014 09:33:00 05/12/2014 11:18:00 DIS Emergency CAR HARRIS MD [facility] ER BEE STING L FOOT [id number] 05/08/2014 07:47:00 05/09/2014 09:10:00 DIS Outpatient CHRIS FERRELL MD [facility] CATH VICKI,BRADYCARDIA,HTN,CAD [id number] 04/08/2014 14:38:00 04/08/2014 17:23:00 DIS Emergency HANNAH SIDDIQUI DO [facility] ER RIGHT LEG PAIN/SWELLING/ BRUISING [id number] 06/05/2013 11:18:00 06/05/2013 23:59:59 CLS Outpatient RIDINGS, LUCIANA Baeza APRN [facility] RAD L ABD PAIN,L SIDE BACK PAIN T12-L2 [id number] 02/02/2013 17:23:00 02/02/2013 23:59:59 CLS Outpatient [id number] 05/10/2014 10:49:00 Document Registration [id number] 12/21/2012 00:04:00 Document Registration [id number] 05/17/2012 16:07:00 Document Registration [id number] 03/13/2012 05:44:00 Document Registration [id number] 03/07/2012 12:52:00 Document Registration [id number] 08/30/2011 11:04:00 Document Registration [id number] 05/30/2011 09:10:00 Document Registration [id number] 04/04/2015 14:45:35 ACT Document Registration
== END 2018-03-05 11:50 | disposition home or self-care (01) ==
LOC: EDUNIT# 09:00 → ER 09:01
DX: S09.90XA Unspecified injury of head, initial encounter (principal); S80.01XA Contusion of right knee, initial encounter; R40.2142 Coma scale, eyes open, spontaneous, at arrival to emergency department; R40.2252 Coma scale, best verbal response, oriented, at arrival to emergency department; R40.2362 Coma scale, best motor response, obeys commands, at arrival to emergency department; K21.9 Gastro-esophageal reflux disease without esophagitis; E03.9 Hypothyroidism, unspecified; F41.9 Anxiety disorder, unspecified; G47.9 Sleep disorder, unspecified; Z88.0 Allergy status to penicillin; Z88.2 Allergy status to sulfonamides; Z88.7 Allergy status to serum and vaccine; Z88.6 Allergy status to analgesic agent; Z91.040 Latex allergy status; Z95.0 Presence of cardiac pacemaker; Z90.89 Acquired absence of other organs; Z96.653 Presence of artificial knee joint, bilateral; W01.10XA Fall on same level from slipping, tripping and stumbling with subsequent striking against unspecified object, initial encounter; Y92.129 Unspecified place in nursing home as the place of occurrence of the external cause
CPT/HCPCS: 70450; 73562

== ENCOUNTER 2018-03-18 14:39 | Emergency (ER) | payer MEDICARE, OTHER ==
[~2018-03-18] VITALS: Ht 182.9 cm; Wt 97.1 kg
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
[2018-03-18] MEDS ORDERED: RT-ALBUTEROL/IPRATROPIUM 3 ML (DUONEB) VIAL INH ONE (15:00)
--- NOTE | 2018-03-18 15:24 | Diagnostic Imaging Report ---
PROCEDURE: CT head and CT cervical spine without contrast. TECHNIQUE: Multiple contiguous axial images were obtained through the brain and cervical spine without the use of intravenous contrast. Sagittal and coronal reformations through the cervical spine were then performed. INDICATION: Head and neck injury. COMPARISON: CT head from 03/05/2018. CT HEAD: Age-related cerebral volume loss and chronic small vessel ischemic changes are present. There is no midline shift or mass effect. There is no focus of acute ischemia or hemorrhage. There is no extra-axial fluid collection. Osseous structures, visualized paranasal sinuses and mastoids are clear. IMPRESSION: No acute intracranial abnormality. CT CERVICAL SPINE: Alignment is normal. There is no subluxation or fracture. Mild diffuse degenerative disc disease and facet joint arthropathy are seen. There is no paraspinous mass. IMPRESSION: No traumatic malalignment or fracture. Dictated by: Dictated on workstation # [id number]
--- NOTE | 2018-03-18 15:30 | Diagnostic Imaging Report ---
INDICATION: Wheezing, shortness of breath. COMPARISON: 05/08/14. FINDINGS: Frontal and lateral views of the chest demonstrate clear lungs bilaterally. The heart is prominent but stable. There is no pneumothorax or effusion. There is hyperinflation compatible with COPD. There is focal scarring in the bases. Stable nodule seen in the right upper lobe. IMPRESSION: 1. COPD without infiltrate. 2. Minimal cardiac enlargement without pulmonary edema. Dictated by: Dictated on workstation # [id number]
[2018-03-18 15:40] VITALS: BP 131/62
== END 2018-03-18 15:39 | disposition home or self-care (01) ==
LOC: EDUNIT# 14:39 → ER 14:42
DX: S09.90XA Unspecified injury of head, initial encounter (principal); I25.10 Atherosclerotic heart disease of native coronary artery without angina pectoris; I10 Essential (primary) hypertension; K21.9 Gastro-esophageal reflux disease without esophagitis; E03.9 Hypothyroidism, unspecified; F41.9 Anxiety disorder, unspecified; F32.9 Major depressive disorder, single episode, unspecified; Z86.73 Personal history of transient ischemic attack (TIA), and cerebral infarction without residual deficits; Z96.653 Presence of artificial knee joint, bilateral; Z90.89 Acquired absence of other organs; Z88.0 Allergy status to penicillin; Z88.2 Allergy status to sulfonamides; Z88.7 Allergy status to serum and vaccine; Z88.5 Allergy status to narcotic agent; W01.198A Fall on same level from slipping, tripping and stumbling with subsequent striking against other object, initial encounter
CPT/HCPCS: 70450; 71046; 72125; 94640

== ENCOUNTER → 2018-07-12 | Outpatient (CLI) | payer MEDICARE, OTHER ==
--- NOTE | 2018-07-12 08:25 | Diagnostic Imaging Report ---
PROCEDURE: CT chest with and without contrast. TECHNIQUE: Multiple contiguous axial images were obtained through the chest before and after administration of intravenous contrast. INDICATION: Followup right upper lobe pulmonary nodule. No prior CT studies studies are available for comparison. Comparison is made with chest radiograph from 03/18/2018. The left chest wall cardiac pacemaker is noted. No axillary lymphadenopathy is seen. There are calcified lymph nodes in the right hilum. There is also calcified granuloma in the right upper lobe correlating with chest x-ray nodule. Features are consistent with prior granulomatous exposure. There is a slightly irregular density in the subpleural location of the right lower lobe measuring 1.4 x 0.9 cm, indeterminate. Tiny nodule left lower lobe is noted measuring 6 mm. This appears to be noncalcified. No other parenchymal abnormalities are seen. No pericardial or pleural fluid is identified. IMPRESSION: 1. Features consistent with prior granulomatous exposure. There are calcified hilar lymph nodes and right upper lobe granuloma accounting for the chest x-ray abnormality. 2. Indeterminant irregular subpleural density in the right lower lobe bilaterally, image 42. While this may represent an area of scarring or atelectasis, other etiologies cannot be entirely excluded. Followup CT chest in 4-6 months is recommended to confirm stability. At this time, a followup of the left lower lobe nodule could also be performed. Dictated by: Dictated on workstation # [id number]
== END ==
LOC: RAD 07:27
DX: J84.10 Pulmonary fibrosis, unspecified (principal); J98.4 Other disorders of lung; Z95.0 Presence of cardiac pacemaker
CPT/HCPCS: 71270

== ENCOUNTER → 2018-10-31 | Outpatient (CLI) | payer MEDICARE, OTHER, MEDICAID ==
[~2018-10-31] MED LIST changes: +CATHETER FLUSH 10 ML SYR IV PRN; +IOHEXOL 350 MG/ML 100 ML (OMNIPAQUE 350) VIAL IV ONE; +NS 100 ML (IVPB) BAG IV ONE; +RECEIVED CONTRAST (Hold Metformin) IV SCH
[2018-10-31 13:12] LABS: CREATININE SERUM 1.15 MG/DL (0.60-1.30)
--- NOTE | 2018-10-31 14:22 | Diagnostic Imaging Report ---
PROCEDURE: CT chest with contrast only. TECHNIQUE: Multiple contiguous axial images were obtained through the chest after administration of intravenous contrast. INDICATION: Left lower lobe pulmonary nodule and right lower lobe pulmonary density noted on CT examination dated 07/12/2018. FINDINGS: There are numerous calcifications seen within the right lung and hilum likely related to previous granulomatous exposure. Subpleural density in the anterior right lower lobe near the base has not significantly changed. There is also no significant change in 0.5 cm subpleural nodules in the posterior left lower lobe. No new mass or infiltrate is identified. There is asymmetry at the level of the thyroid gland with small left lobe. Rather advanced degenerative changes are seen at the sternoclavicular joints. There is filling defect present within the right main pulmonary arterial branches with extension into right middle and lower lobe. This does not appear to be occlusive. There is no significant pleural or pericardial fluid. There is also persistent filling defect within the left subclavian artery which may represent thrombus or fibrin. There is nondisplaced old fracture involving the lateral aspect of left fourth rib. IMPRESSION: 1. Overall stable appearance of bilateral pulmonary nodular densities. This does suggest probable benign etiology which may reflect granulomatous infection or scarring. 2. Nonocclusive pulmonary embolism is seen on the right with filling defect extending into middle lobe and lower lobe branches. 3. Filling defect within the left subclavian artery may represent thrombus or fibrin. Clinical correlation would be useful. Findings were telephoned to referring clinician's office at 1345 hours on 10/31/2018. Dictated by: Dictated on workstation # [id number]
== END ==
LOC: RAD 12:34
PROVIDERS: ATTEND Internal Medicine
DX: J98.4 Other disorders of lung (principal); I26.99 Other pulmonary embolism without acute cor pulmonale; I99.8 Other disorder of circulatory system; R91.1 Solitary pulmonary nodule
CPT/HCPCS: 36415; 71260; 82565; 84520

== ENCOUNTER 2019-01-15 05:36 | Emergency (ER) | payer MEDICARE, OTHER, MEDICAID ==
[~2019-01-15] VITALS: Ht 172.7 cm; Wt 81.6 kg
[~2019-01-15 05:36] MED LIST changes: -CATHETER FLUSH 10 ML SYR IV PRN; -IOHEXOL 350 MG/ML 100 ML (OMNIPAQUE 350) VIAL IV ONE; -NS 100 ML (IVPB) BAG IV ONE; -RECEIVED CONTRAST (Hold Metformin) IV SCH
--- OUTSIDE RECORDS SUMMARY | 2019-01-15 05:48 | XMS REPORT | Continuity of Care Document ---
Author Author [facility] Organization [facility] Address Unknown Phone Unavailable Care Team Providers Care Dental Coordinator Name Role Phone MIRYAM ARVIZU DO PCP Insurance Providers Payer Name Policy Number Subscriber Name Relationship [employer] Medicare [id number] Armando Milan 17 Self / Same As Patient Enter Insurance Name [id number] Armando Milan 17 Self / Same As Patient Advance Directives Directive Response Recorded Date/Time Advance Directives Yes 05/12/14 9:47am Health Care Power of Per Diem Physical Therapist Assistant Kwesi TUNG DOUGLAS 05/12/14 9:47am Organ Donor No 05/12/14 9:47am Resuscitation Status unknown 05/12/14 9:47am Problems Medical Problems Problem Onset Date Status Bee sting Unknown Active Medications Medication Dose Route Sig [...] Response Recorded Date/Time Alcohol Use Denies Use 05/12/2014 9:47am Recreational Drug Use No 05/12/2014 9:47am Recent Foreign Travel No 05/12/2014 9:47am Recent Infectious Disease Exposure No 05/12/2014 9:47am Hospitalization with Isolation Denies 05/12/2014 9:47am Smoking Status Never a Smoker 05/12/2014 9:47am Query Response Start Date Stop Date Smoking Status Never a Smoker Hospital Discharge Instructions No hospital discharge instructions. Plan of Care No plan of care. Functional Status No functional status results. Allergies, Adverse Reactions, Alerts Allergen Type Severity Reaction Status Last Updated Penicillins ([id number]) Allergy Mild RASH Active 03/13/12 Sulfa (Sulfonamide Antibiotics) ([id number]) Allergy Unknown Active 01/07 Tetanus Vaccines & Toxoid ([id number]) Allergy Unknown Active 05/01/10 morphine Adverse Reaction Mild N & V Active 05/30/11 meperidine Allergy Unknown Active 05/01/10 latex Allergy Unknown Active 05/22/07 ALLERGY TO TAPE & PLASTIC TAPE Allergy Intermediate SKIN BREAKS OUT Active 05/30/11 EPIDURAL Allergy Unknown Active 05/30/11 Immunizations Name Given Type Date of Pneumonia Vaccine 09/19/09 Historical Date of Influenza Vaccine 06/19/11 Historical Vital Signs Acute Vital Signs Vital Response Date/Time Temperature (Fahrenheit) 97.5 degrees F (97.6 - 99.5) Temperature (Calculated Celsius) 36.12071 degrees C (36.4 - 37.5) Temperature Source Tympanic Pulse Rate (adult) 77 bpm (60 - 90) Respiratory Rate 16 bpm (12 - 24) O2 Sat by Pulse Oximetry 98 % (88 - 100) Blood Pressure 141/86 mm Hg Pain Pain Intensity 1 Height (Feet) 6 feet Height (Inches) 0 inches Height (Calculated Centimeters) 182.882024 cm Weight (Pounds) 185 pounds Weight (Ounces) 0.0 oz Weight (Calculated Grams) 92918.366 gm Weight (Calculated Kilograms) 83.965457 kilograms Calculated BMI 25.09 Results Test Source Date Result Interp. Ref. Range Comments Activated Partial Thromboplast Time May 08, 2014 9:25am 23 SEC L 24- 35 Alanine Aminotransferase (ALT/SGPT) May 08, 2014 9:43am 22 U/L N 0- 55 Albumin May 08, 2014 9:43am 3.9 G/DL N 3.2-4.5 Alkaline Phosphatase May 08, 2014 9:43am 65 U/L N 40-136 Amylase Level December 21, 2012 12:40am 40 U/L N 25-115 Aspartate Amino Transf (AST/SGOT) May 08, 2014 9:43am 23 U/L N 5-34 BUN/Creatinine Ratio May 10, 2014 11:49am 21 - Band Neutrophils December 21, 2012 12:40am 0 % - Basophils # (Auto) May 10, 2014 11:49am 0.0 10^3/uL N 0.0-0.1 Basophils % (Manual) December 21, 2012 12:40am 0 % - Basophils (%) (Auto) May 10, 2014 11:49am 0 % N 0-10 Blood Urea Nitrogen May 10, 2014 11:49am 19 MG/DL H 7-18 Calcium Level May 10, 2014 11:49am 9.9 MG/DL N 8.5-10.1 Carbon Dioxide Level May 10, 2014 11:49am 21 MMOL/L N 21-32 Chloride Level May 10, 2014 11:49am 110 MMOL/L H 98-107 Cholesterol Level May 08, 2014 9:43am 160 MG/DL N -200 Creatine Kinase MB October 18, 2008 5:20pm 2.2 NG/ML N 0.0-3.6 Creatinine May 10, 2014 11:49am 0.89 MG/DL N 0.60-1.30 D-Dimer October 10, 2009 9:02am 12.19 UG/ML H 0.00-0.49 Direct Bilirubin October 10, 2009 9:02am 0.1 MG/DL N 0.0-0.30 Ehrlichia chaffeensis IgG Antibody May 03, 2009 2:12pm <1:16 - URGENT MESSAGEPLEASE GIVE A COPY OF THE L REPORT TO [facility]CRO[facility]OLOG[facility] DEPARTMENT FOR ALL POSITIVE EHRLICHIA CHAFFEENSIS ANTIBODY RESULTS ON THIS TEST. Ehrlichia chaffeensis IgM Antibody May 03, 2009 2:12pm <1:10 - URGENT MESSAGEPLEASE GIVE A COPY OF THE RML REPORT TO [facility] DEPARTMENT FOR ALL POSITIVE EHRLICHIA CHAFFEENSIS ANTIBODY RESULTS ON THIS TEST. Eosinophils # (Auto) May 10, 2014 11:49am 0.1 10^3/uL N 0.0-0.3 Eosinophils % (Manual) December 21, 2012 12:40am 1 % - Eosinophils (%) (Auto) May 10, 2014 11:49am 2 % N 0-10 Erythrocyte Sedimentation Rate May 03, 2009 2:12pm 4 MM/HR N 0-30 Fibrinogen October 10, 2009 9:02am 314 MG/DL N 221-496 Glucose Level May 10, 2014 11:49am 91 MG/DL N 70-105 HDL Cholesterol May 08, 2014 9:43am 41 MG/DL N 40-60 Hematocrit May 10, 2014 11:49am 45 % N 40-54 Hemoglobin May 10, 2014 11:49am 15.5 G/DL N 13.3-17.7 Indirect Bilirubin October 10, 2009 9:02am 0.3 MG/DL - LDL Cholesterol May 12, 2008 6:45am 68 MG/DL N 0-129 LDL Cholesterol Direct May 08, 2014 9:43am 104 MG/DL N 1-129 Lipase December 21, 2012 12:40am 114 U/L N 73-393 Lyme Disease (B.burgdorferi) Ab May 03, 2009 2:12pm 0.13 - URGENT MESSAGEPLEASE GIVE A COPY OF THE RML REPORT TO [facility]CRO[facility] DEPARTMENT FOR ALL POSITIVE EHRLICHIA CHAFFEENSIS ANTIBODY RESULTS ON THIS TEST. Lymphocytes # (Auto) May 10, 2014 11:49am 0.8 X 10^3 L 1.0-4.0 Lymphocytes % (Manual) December 21, 2012 12:40am 10 % - Lymphocytes (%) (Auto) May 10, 2014 11:49am 13 % N 12-44 Magnesium Level May 30, 2011 9:35am 2.1 MG/DL N 1.8-2.4 Mean Corpuscular Hemoglobin May 10, 2014 11:49am 32 PG N 25-34 Mean Corpuscular Hemoglobin Concent May 10, 2014 11:49am 35 G/DL N 32 -36 Mean Corpuscular Volume May 10, 2014 11:49am 91 FL N 80-99 Mean Platelet Volume May 10, 2014 11:49am 10.7 FL H 7.4-10.4 Monocytes # (Auto) May 10, 2014 11:49am 0.7 X 10^3 N 0.0-1.0 Monocytes % (Manual) December 21, 2012 12:40am 5 % - Monocytes (%) (Auto) May 10, 2014 11:49am 11 % N 0-12 Myoglobin May 30, 2011 9:35am 146 UG/L H 10-92 Neutrophils # (Auto) May 10, 2014 11:49am 4.8 X 10^3 N 1.8-7.8 Neutrophils % (Manual) December 21, 2012 12:40am 84 % - Neutrophils (%) (Auto) May 10, 2014 11:49am 74 % N 42-75 Phosphorus Level October 10, 2009 9:02am 1.7 MG/DL L 2.5-4.9 Platelet Count May 10, 2014 11:49am 156 10^3/uL N 130-400 Potassium Level May 10, 2014 11:49am 4.0 MMOL/L N 3.6-5.0 Prothromb Time International Ratio March 13, 2012 6:25am 1.0 N 0.8-1.4 INTERPRETIVE DATASUGGESTED THERAPEUTIC RANGE FOR INR'S: VENOUS THROMBOSIS, PULMONARY EMBOLISM, OR PREVENTION OF SYSTEMIC EMBOLISM (EG. IN ATRIAL FIBRILLATION): 2.0 - 3.0 MECHANICAL PROSTHETIC HEART VALVES: 2.5 - 3.5* *NOTE: INR'S UP TO 4.5 MAY BE NECESSARY IN SELECTED GROUPS OF HIGH RISK PATIENTS. [place] [place] [employer] OF CHEST PHYSICIANS CONSENSUS CONFERENCE ON ANTITHROMBOTIC THERAPY (2000). Prothrombin Time May 08, 2014 9:25am 12.8 SEC N 12.2-14.7 Red Blood Count May 10, 2014 11:49am 4.92 10^6/uL N 4.35-5.85 Red Cell Distribution Width May 10, 2014 11:49am 13.5 % N 10.0-14.5 Sodium Level May 10, 2014 11:49am 141 MMOL/L N 135-145 Total Bilirubin May 08, 2014 9:43am 0.6 MG/DL N 0.1-1.0 Total Protein May 08, 2014 9:43am 6.6 G/DL N 6.4-8.2 Triglycerides Level May 08, 2014 9:43am 110 MG/DL N 0-149 Troponin I May 30, 2011 9:35am < 0.10 MG/ML 0.00-0.10 Urine Bacteria December 21, 2012 12:30am MODERATE /HPF H - Has specimen been collected/obtained? YSpecimen Description CLEAN CATCH Urine Bilirubin December 21, 2012 12:30am NEGATIVE - Has specimen been collected/obtained? YSpecimen Description CLEAN CATCH Urine Calcium Oxalate Crystals May 11, 2008 4:45pm Few H - Has specimen been collected/obtained? YSpecimen Description CLEAN CATCH Urine Casts December 21, 2012 12:30am NONE /LPF - Has specimen been collected/obtained? YSpecimen Description CLEAN CATCH Urine Clarity December 21, 2012 12:30am CLEAR - Has specimen been collected/obtained? YSpecimen Description CLEAN CATCH Urine Color December 21, 2012 12:30am YELLOW - Has specimen been collected/obtained? YSpecimen Description CLEAN CATCH Urine Crystals December 21, 2012 12:30am NONE /LPF - Has specimen been collected/obtained? YSpecimen Description CLEAN CATCH Urine Culture Indicated December 21, 2012 12:30am YES - Has specimen been collected/obtained? YSpecimen Description CLEAN CATCH Urine Glucose (UA) December 21, 2012 12:30am NEGATIVE - Has specimen been collected/obtained? YSpecimen Description CLEAN CATCH Urine Ketones December 21, 2012 12:30am NEGATIVE - Has specimen been collected/obtained? YSpecimen Description CLEAN CATCH Urine Leukocyte Esterase December 21, 2012 12:30am 1+ H - Has specimen been collected/obtained? YSpecimen Description CLEAN CATCH Urine Mucus December 21, 2012 12:30am LARGE /LPF H - Has specimen been collected/obtained? YSpecimen Description CLEAN CATCH Urine Nitrate June 23, 2006 1:22pm Positive H - Has specimen been collected/obtained? YSpecimen Description CLEAN CATCH Urine Nitrite December 21, 2012 12:30am NEGATIVE - Has specimen been collected/obtained? YSpecimen Description CLEAN CATCH Urine Protein December 21, 2012 12:30am NEGATIVE - Has specimen been collected/obtained? YSpecimen Description CLEAN CATCH Urine RBC December 21, 2012 12:30am NONE /HPF - Has specimen been collected/obtained? YSpecimen Description CLEAN CATCH Urine Specific [place] December 21, 2012 12:30am 1.025 H - Has specimen been collected/obtained? YSpecimen Description CLEAN CATCH Urine Squamous Epithelial Cells December 21, 2012 12:30am 0-2 /HPF - Has specimen been collected/obtained? YSpecimen Description CLEAN CATCH Urine Urobilinogen December 21, 2012 12:30am NORMAL MG/DL - Has specimen been collected/obtained? YSpecimen Description CLEAN CATCH Urine WBC December 21, 2012 12:30am 25-50 /HPF H - Has specimen been collected/obtained? YSpecimen Description CLEAN CATCH Urine pH December 21, 2012 12:30am 5 - Has specimen been collected/ obtained? YSpecimen Description CLEAN CATCH VLDL Cholesterol May 08, 2014 9:43am 22 MG/DL N 5-40 Vancomycin Level Trough July 03, 2006 7:30am 5 MCG/ML L 10.0-20.0 White Blood Count May 10, 2014 11:49am 6.5 10^3/uL N 4.3-11.0 Pathology Consult Specimen November 20, 2008 6:30pm See report - Has specimen been collected/obtained? Y Serum Alcohol October 10, 2009 9:02am < 5 MG/DL -5 Tularemia Antibody May 03, 2009 2:12pm <1:20 - TULAREMIA AB INTERPRETIVE DATA:REFERENCE RANGE: <1:20 INTERPRETIVE CRITERIA: <1:20 NEGATIVE 1:20 - 1:80 EQUIVOCAL > or=1:160 POSITIVE In the presence of compatible symptoms, a Francisella tularensis antibody titer of 1:160 or greater in an acute specimen supports a presumptive diagnosis of tularemia. However, a titer > or=1:160 may also reflect past infection. An equivocal titer may be due to crossreactive antibodies (Brucella, Yersenia, or Proteus OX19), past infection, or very recent infection. A four-fold rise in titer between acute and convalescent sera is required for definitive serologic diagnosis of tularemia. THIS TEST WAS PERFORMED AT: [employer]. [address] [place] [address] Princess Montero MD Glucometer May 05, 2010 11:13am 165 MG/DL H 70-110 Comments to Room Service Waiter: RECOVERY #2 Lab Scanned Report May 30, 2011 9:10am Referred Lab Report [id number] - Estimat Glomerular Filtration Rate May 10, 2014 11:49am > 60 - GFR INTERPRETIVE DATA UNITS FOR ESTIMATED GFR (eGFR): mL/min/1.73 M2 REFERENCE RANGE FOR ESTIMATED GFR (eGFR) eGFR NORMAL eGFR >60 MODERATELY DECREASED eGFR 30-59 SEVERLY DECREASED eGFR 15-29 KIDNEY FAILURE <15 (OR DIALYSIS) Spotted Fever Group IgG Antibody May 03, 2009 2:12pm <1:16 - URGENT MESSAGEPLEASE GIVE A COPY OF THE RML REPORT TO [facility] DEPARTMENT FOR ALL POSITIVE EHRLICHIA CHAFFEENSIS ANTIBODY RESULTS ON THIS TEST. Spotted Fever Group IgM Antibody May 03, 2009 2:12pm <1:10 - URGENT MESSAGEPLEASE GIVE A COPY OF THE RML REPORT TO [facility] DEPARTMENT FOR ALL POSITIVE EHRLICHIA CHAFFEENSIS ANTIBODY RESULTS ON THIS TEST. Blood Morphology Comment December 21, 2012 12:40am NORMAL - Creatine Kinase May 30, 2011 9:35am 227 U/L H 1-205 Cardiac Panel Pathologist Review May 30, 2011 9:35am SEE CARDIAC PATH REV - Urine RBC (Auto) December 21, 2012 12:30am NEGATIVE - Has specimen been collected/obtained? YSpecimen Description CLEAN CATCH INR Comment May 08, 2014 9:25am 1.0 N 0.8-1.4 INTERPRETIVE DATASUGGESTED THERAPEUTIC RANGE FOR INR'S: VENOUS THROMBOSIS, PULMONARY EMBOLISM, OR PREVENTION OF SYSTEMIC EMBOLISM (EG. IN ATRIAL FIBRILLATION): 2.0 - 3.0 MECHANICAL PROSTHETIC HEART VALVES: 2.5 - 3.5* *NOTE: INR'S UP TO 4.5 MAY BE NECESSARY IN SELECTED GROUPS OF HIGH RISK PATIENTS. [employer] [place] [employer] CONSENSUS CONFERENCE ON ANTITHROMBOTIC THERAPY (2000). Blood Culture Peripheral-Right Wrist May 10, 2014 12:13pm No growth Fecal Leukocyte Stain Stool December 21, 2012 12:45am MRSA Screen Nasal May 08, 2014 9:25am MRSA not isolated Urine Culture Urine-Clean Catch December 21, 2012 12:30am Escherichia Coli Gram Stain Abscess-Arm, Left March 30, 2006 8:50am Procedures Procedure Status Date Provider(s) Tracing only of electrocardiogram completed 05/08/14 CHRIS FERRELL MD Encounters Encounter Location Date/Time Departed Emergency Room [facility] 05/12/14 9:33am Departed Emergency Room [facility] 05/10/14 10:49am Recent Diagnosis
--- OUTSIDE RECORDS SUMMARY | 2019-01-15 05:48 | XMS REPORT | Continuity of Care Document ---
Author Author [facility] Organization [facility] Address Unknown Phone Unavailable Care Team Providers Care Kennel Hand Name Role Phone MIRYAM ARVIZU DO PCP Insurance Providers Payer Name Policy Number Subscriber Name Relationship [employer] [id number] Armando Milan 17 Self / Same As Patient Enter Insurance Name [id number] Armando Milan 17 Self / Same As Patient Advance Directives Directive Response Recorded Date/Time Advance Directives Yes 11/14/16 2:32am Health Care Power of Estimate Clerk Kwesi TUNG VALDEZRETT 11/14/16 2:32am Organ Donor No 11/14/16 2:32am Resuscitation Status Full Code 11/14/16 2:32am Chief Complaint and Reason for Visit Chief Complaint Trauma-Non Activation Reason for Visit Contusion/hematoma left orbit c/ subconjunctivial hemorrhage [id number] Laceration of left eyebrow without complication Fall Problems Active Problems Medical Problem Onset Date Status Bee sting Unknown Acute Contusion of hip, right Unknown Acute Contusion, nose Unknown Acute Fall Unknown Acute Laceration of left eyebrow without complication Unknown Acute Medications Current Home Medications Medication Dose Units Route Directions Days/Qty Instructions Start Date Naproxen Sodium 220 Mg 220 Mg Oral Daily as needed for Pain 10/09/10 Sertraline Hcl 25 Mg 25 Mg Oral Daily 02/06/11 Amlodipine Besylate (Norvasc 5 Mg) 5 Mg 5 Mg Oral Daily 03/07/12 Alprazolam 0.5 Mg 0.25 Mg Oral Twice A Day as needed for Anxiety Calcium Carbonate/Vitamin D3 1 Each 1 Tab Oral Daily 05/08/14 Clopidogrel Bisulfate 75 Mg 75 Mg Oral Daily 05/08/14 Multivitamin 1 Each 1 Tab Oral Daily 05/08/14 Ascorbic Acid 500 Mg 500 Mg Oral Daily 05/08/14 Levofloxacin 500 Mg 500 Mg Oral Daily@11 7 05/09/14 Cefdinir (Omnicef) 300 Mg 1 Each Oral Twice A Day 20 05/10/14 Past Home Medications Medication Directions Ordered Status Escitalopram Oxalate 10 Mg Tablet, 05/22/07 Discontinued Amlodipine Besylate 5 Mg Tablet, 05/22/07 Discontinued [Lotrel] , 05/22/07 Discontinued Thiamine Hcl 100 Mg Tab, 05/22/07 Discontinued Calcium/Vitamin D 1 Tab Tablet, 05/22/07 Discontinued Clonazepam 1 Mg Tablet, 05/22/07 Discontinued Alprazolam 0.5 Mg Tablet, 05/22/07 Discontinued Fosinopril Sodium 20 Mg Tablet, 05/22/07 Discontinued Multivitamins 1 Ea Tablet, 05/22/07 Discontinued [Centrum Silver] , 1 Tab Oral Daily 02/08/08 Discontinued Pseudoephedrine Hcl 30 Mg Tab, 02/08/08 Discontinued Guaifenesin 600 Mg Tab, 02/08/08 Discontinued [Ec Garlic] , 02/08/08 Discontinued Escitalopram Oxalate 10 Mg Tablet, 02/08/08 Discontinued [Co Q 10 Enzyme] , 02/08/08 Discontinued Alprazolam 0.25 Mg Tablet, 02/08/08 Discontinued [Garlic Odorless] , 05/11/08 Discontinued [Lycopene] , 05/11/08 Discontinued [Lotrel] , 05/11/08 Discontinued Trimethoprim/Sulfamethoxazole 1 Each Tablet, 1 Each Oral Twice A Day Discontinued Methylprednisolone 4 Mg/Dose-Pack Tab.ds.pk, 0 Oral As Directed 05/03/09 Discontinued Levetiracetam (Keppra) 1,000 Mg Tablet, 10/21/09 Discontinued Amlodipine Besylate 5 Mg Tablet, 5 Mg Oral Daily 10/21/09 Discontinued Lisinopril (Zestril) 40 Mg Tablet, 40 Mg Oral Daily 10/21/09 Discontinued Docusate Sodium 100 Mg Cap, 10/21/09 Discontinued Levofloxacin 500 Mg Tab, 10/21/09 Discontinued Potassium Chloride 10 Meq Capsule.sa, 10/21/09 Discontinued Magnesium Hydroxide 400 Mg/5 Ml Oral.susp, 10/21/09 Discontinued Warfarin Sodium 5 Mg Tab, 5 Mg Oral Daily 10/21/09 Discontinued Ferrous Sulfate 325 Mg Tab, 10/21/09 Discontinued Pantoprazole Sodium 40 Mg Tablet., 10/21/09 Discontinued Acetaminophen 650 Mg/Supp.rect Supp, 10/21/09 Discontinued Acetaminophen 325 Mg Tab, 10/21/09 Discontinued Acetaminophen/Hydrocodone Bitart 1 Each Tablet, 10/21/09 Discontinued Bisacodyl 10 Mg Supp, 10/21/09 Discontinued Pseudoephedrine Hcl 30 Mg Tab, 10/21/09 Discontinued Neomycin/Polymyxin/Bacitracin 15 Gm Oint, 10/21/09 Discontinued Calcium Carbonate/Vitamin D3 1 Each Tablet, 10/21/09 Discontinued Phenytoin Sodium 100 Mg Cap, 11/16/09 Discontinued Meclizine Hcl 25 Mg Tablet, 1 Each Oral Qid Prn 11/16/09 Discontinued Alprazolam 0.25 Mg Tablet, 1 Tab Oral Bedtime 04/26/10 Discontinued Calcium/Vitamin D 1 Tab Tablet, 1 Tab Oral Daily 10/09/10 Discontinued Amlodipine/Benazepril Hcl 1 Cap Capsule, 1 Each Oral Daily 10/09/10 Discontinued Phenylephrine Hcl 10 Mg Tablet, 10 Mg Oral As Needed 10/09/10 Discontinued Alprazolam 0.25 Mg Tab.rapdis, 1 Each Oral As Needed 10/09/10 Discontinued Escitalopram Oxalate 10 Mg Tablet, 1 Each Oral As Needed 10/09/10 Discontinued Sertraline Hcl 25 Mg Tablet, 25 Mg Oral Daily 10/09/10 Discontinued Scopolamine Hcl 1 Patch .72 H Patch.td72, 1 Ea Transderm Every 3 Days Discontinued Meclizine Hcl 25 Mg Tab, 1 - 2 Tab Oral Q 4-6 Hours as needed 02/06/11 Discontinued Scopolamine Hcl 1 Patch .72 H Patch.td72, 1 Ea Transderm Every 3 Days Discontinued Meclizine Hcl 25 Mg Tablet, 1 Each Oral Qid Prn 02/20/11 Discontinued Metronidazole 500 Mg Tab, 1 Each Oral Three Times A Day 12/21/12 Discontinued Levofloxacin 500 Mg Tab, 1 Each Oral Daily 12/21/12 Discontinued Social History Social History Problem Response Recorded Date/Time Alcohol Use Denies Use 09/29/2014 9:20am Recreational Drug Use No 09/29/2014 9:20am Recent Foreign Travel No 05/15/2014 3:11pm Recent Infectious Disease Exposure No 05/15/2014 3:11pm Hospitalization with Isolation Denies 05/15/2014 3:11pm Smoking Status Never a Smoker 11/14/2016 2:32am Recent Hopitalizations No 11/14/2016 2:32am Hospitalization with Isolation Denies 05/15/2014 3:11pm Hx Sexually Transmitted Disorders No 03/13/2012 6:43am Query Response Start Date Stop Date Smoking Status Never a Smoker Hospital Discharge Instructions No hospital discharge instructions. Plan of Care Discharge Date 11/14/16 4:25am Disposition 03 XFER SNF Condition at Discharge Improved Instructions/Education Provided Laceration Repair With Stitches (DC) Head Injury Observation (DC) Subconjunctival Hemorrhage Prescriptions See Medication Section Referrals MIRYAM ARVIZU DO - Primary Care Physician Additional Instructions/Education SUTURES NEED TO BE REMOVED IN 5-7 DAYS. Functional Status No functional status results. Allergies, Adverse Reactions, Alerts Allergen Type Severity Reaction Status Last Updated Penicillins ([id number]) Allergy Mild RASH Active 03/13/12 Sulfa (Sulfonamide Antibiotics) ([id number]) Allergy Unknown Active 01/07 Tetanus Vaccines & Toxoid ([id number]) Allergy Unknown Active 05/01/10 Morphine Adverse Reaction Mild N & V Active 05/30/11 Meperidine Allergy Unknown Active 05/01/10 Latex Allergy Unknown Active 05/22/07 ALLERGY TO TAPE & PLASTIC TAPE Allergy Intermediate SKIN BREAKS OUT Active 05/30/11 EPIDURAL Allergy Unknown Active 05/30/11 Immunizations No immunization records. Vital Signs Acute Vital Signs Vital Response Date/Time Temperature (Fahrenheit) 96.9 degrees F (97.6 - 99.5) 11/14/2016 2:32am Temperature (Calculated Celsius) 36.65028 degrees C (36.4 - 37.5) 11/14/2016 2:32am Temperature Source Temporal 11/14/2016 2:32am Pulse Rate (adult) 60 bpm (60 - 90) 11/14/2016 2:32am Respiratory Rate 18 bpm (12 - 24) 11/14/2016 2:32am O2 Sat by Pulse Oximetry 96 % (88 - 100) 11/14/2016 2:32am Blood Pressure 170/90 mm Hg 11/14/2016 2:32am Blood Pressure Mean 116 mm Hg 11/14/2016 2:32am Pain Numeric Pain Scale 5-Moderate Pain 11/14/2016 4:18am Height (Feet) 6 feet 11/14/2016 2:32am Height (Inches) 0 inches 11/14/2016 2:32am Height (Calculated Centimeters) 182.035956 cm 11/14/2016 2:32am Weight (Pounds) 240 pounds 11/14/2016 2:32am Weight (Calculated Kilograms) 108.806020 kilograms 11/14/2016 2:32am Capillary Refill Capillary Refill Less Than 3 Seconds 11/14/2016 2:32am Height 6 ft 0 in Weight 240 lb Body Mass Index 32.5 kg/m^2 Results No known relevant diagnostic tests, laboratory data and/or discharge summary. Procedures No known history of procedures. Encounters Encounter Location Arrival/Admit Date Discharge/Depart Date Attending Provider Departed Emergency Room [facility] 11/14/16 2:33am 11/14 4:25am MIRYAM AMARAL DO Recent Diagnosis
--- OUTSIDE RECORDS SUMMARY | 2019-01-15 05:49 | XMS REPORT | Continuity of Care Document ---
Author Author [facility] Organization [facility] Address Unknown Phone Unavailable Care Team Providers Care Historical Manuscripts Curator Name Role Phone MIRYAM ARVIZU DO PCP Insurance Providers Payer Name Policy Number Subscriber Name Relationship Wps Medicare [id number] Armando Milan 17 Self / Same As Patient Enter Insurance Name [id number] Armando Milan 17 Self / Same As Patient Advance Directives Directive Response Recorded Date/Time Advance Directives Yes 05/08/14 12:30pm Health Care Power of Tool Coordinator Kwesi COLE 05/08/14 12:30pm Organ Donor No 05/08/14 12:30pm Resuscitation Status Full Code 05/08/14 12:30pm Problems No known problems or medical conditions. Medications Medication Dose Route Sig Days/Qty Instructions [...] Mg PO DAILY@11 7 Qty 05/09/14 Active Social History Social History Problem Response Recorded Date/Time Alcohol Use Denies Use 05/08/2014 12:30pm Recreational Drug Use No 05/08/2014 12:30pm Recent Foreign Travel No 05/08/2014 12:30pm Recent Infectious Disease Exposure No 05/08/2014 12:30pm Hospitalization with Isolation Denies 05/09/2014 11:32am Smoking Status Never a Smoker 05/08/2014 9:11am Query Response Start Date Stop Date Smoking Status Never a Smoker Hospital Discharge Instructions No hospital discharge instructions. Plan of Care No plan of care. Functional Status Query Response Date Recorded Patient Orientation Person Place Time Situation May 09, 2014 11:32am Comprehension Ability Understands Concepts May 08, 2014 8:00pm Allergies, Adverse Reactions, Alerts Allergen Type Severity Reaction Status Last Updated Penicillins ([id number]) Allergy Mild RASH Active 03/13/12 Sulfa (Sulfonamide Antibiotics) ([id number]) Allergy Unknown Active 01/07 Tetanus Vaccines & Toxoid ([id number]) Allergy Unknown Active 05/01/10 morphine Adverse Reaction [...] Vital Signs Vital Response Date/Time Temperature (Fahrenheit) 96.5 degrees F (97.6 - 99.5) Temperature (Calculated Celsius) 35.08839 degrees C (36.4 - 37.5) Temperature Source Tympanic Pulse Rate (adult) 74 bpm (60 - 90) Respiratory Rate 18 bpm (12 - 24) O2 Sat by Pulse Oximetry 94 % (88 - 100) Blood Pressure 144/88 mm Hg Pain Pain Intensity 0 Height (Feet) 6 feet Height (Inches) 0.00 inches Height (Calculated Centimeters) 182.010567 cm Weight (Pounds) 188 pounds Weight (Ounces) 0.0 oz Weight (Calculated Grams) 68380.366 gm Weight (Calculated Kilograms) 85.333083 kilograms Calculated BMI 25.09 Results Test Source Date Result Interp. Ref. Range Comments Activated Partial Thromboplast Time May 30, 2011 9:35am 32 SEC N 24-35 Alanine Aminotransferase (ALT/SGPT) April 08, 2014 3:45pm 14 U/L N 0-55 Albumin April 08, 2014 3:45pm 3.6 G/DL N 3.2-4.5 Alkaline Phosphatase April 08, 2014 3:45pm 66 U/L N 40-136 Amylase Level December 21, 2012 12:40am 40 U/L N 25-115 Aspartate Amino Transf (AST/SGOT) April 08, 2014 3:45pm 21 U/L N 5-34 BUN/Creatinine Ratio April 08, 2014 3:45pm 26 - Band Neutrophils December 21, 2012 12:40am 0 % - Basophils # (Auto) April 08, 2014 3:45pm 0.0 10^3/uL N 0.0-0.1 Basophils % (Manual) December 21, 2012 12:40am 0 % - Basophils (%) (Auto) April 08, 2014 3:45pm 0 % N 0-10 Blood Urea Nitrogen April 08, 2014 3:45pm 23 MG/DL H 7-18 Calcium Level April 08, 2014 3:45pm 9.1 MG/DL N 8.5-10.1 Carbon Dioxide Level April 08, 2014 3:45pm 25 MMOL/L N 21-32 Chloride Level April 08, 2014 3:45pm 112 MMOL/L H 98-107 Cholesterol Level May 12, 2008 6:45am 135 MG/DL N -200 Creatine Kinase MB October 18, 2008 5:20pm 2.2 NG/ML N 0.0-3.6 Creatinine April 08, 2014 3:45pm 0.88 MG/DL N 0.60-1.30 D-Dimer October 10, 2009 9:02am 12.19 UG/ML H 0.00-0.49 Direct Bilirubin October 10, 2009 9:02am 0.1 MG/DL N 0.0-0.30 Ehrlichia chaffeensis IgG Antibody May 03, 2009 2:12pm <1:16 - URGENT MESSAGEPLEASE GIVE A COPY OF THE RML REPORT TO [facility] MICROBIOLOGY DEPARTMENT FOR ALL POSITIVE EHRLICHIA CHAFFEENSIS ANTIBODY RESULTS ON THIS TEST. Ehrlichia chaffeensis IgM Antibody May 03, 2009 2:12pm <1:10 - URGENT MESSAGEPLEASE GIVE A COPY OF THE RML REPORT TO [facility] MICROBIOLOGY DEPARTMENT FOR ALL POSITIVE EHRLICHIA CHAFFEENSIS ANTIBODY RESULTS ON THIS TEST. Eosinophils # (Auto) April 08, 2014 3:45pm 0.1 10^3/uL N 0.0-0.3 Eosinophils % (Manual) December 21, 2012 12:40am 1 % - Eosinophils (%) (Auto) April 08, 2014 3:45pm 2 % N 0-10 Erythrocyte Sedimentation Rate May 03, 2009 2:12pm 4 MM/HR N 0-30 Fibrinogen October 10, 2009 9:02am 314 MG/DL N 221-496 Glucose Level April 08, 2014 3:45pm 100 MG/DL N 70-105 HDL Cholesterol May 12, 2008 6:45am 31 MG/DL L 35-60 Hematocrit April 08, 2014 3:45pm 41 % N 40-54 Hemoglobin April 08, 2014 3:45pm 14.4 G/DL N 13.3-17.7 Indirect Bilirubin October 10, 2009 9:02am 0.3 MG/DL - LDL Cholesterol May 12, 2008 6:45am 68 MG/DL N 0-129 Lipase December 21, 2012 12:40am 114 U/L N 73-393 Lyme Disease (B.burgdorferi) Ab May 03, 2009 2:12pm 0.13 - URGENT MESSAGEPLEASE GIVE A COPY OF THE RML REPORT TO [facility] MICROBIOLOGY DEPARTMENT FOR ALL POSITIVE EHRLICHIA CHAFFEENSIS ANTIBODY RESULTS ON THIS TEST. Lymphocytes # (Auto) April 08, 2014 3:45pm 0.9 X 10^3 L 1.0-4.0 Lymphocytes % (Manual) December 21, 2012 12:40am 10 % - Lymphocytes (%) (Auto) April 08, 2014 3:45pm 15 % N 12-44 Magnesium Level May 30, 2011 9:35am 2.1 MG/DL N 1.8-2.4 Mean Corpuscular Hemoglobin April 08, 2014 3:45pm 32 PG N 25-34 Mean Corpuscular Hemoglobin Concent April 08, 2014 3:45pm 35 G/DL N 32- 36 Mean Corpuscular Volume April 08, 2014 3:45pm 92 FL N 80-99 Mean Platelet Volume April 08, 2014 3:45pm 10.0 FL N 7.4-10.4 Monocytes # (Auto) April 08, 2014 3:45pm 0.6 X 10^3 N 0.0-1.0 Monocytes % (Manual) December 21, 2012 12:40am 5 % - Monocytes (%) (Auto) April 08, 2014 3:45pm 10 % N 0-12 Myoglobin May 30, 2011 9:35am 146 UG/L H 10-92 Neutrophils # (Auto) April 08, 2014 3:45pm 4.5 X 10^3 N 1.8-7.8 Neutrophils % (Manual) December 21, 2012 12:40am 84 % - Neutrophils (%) (Auto) April 08, 2014 3:45pm 73 % N 42-75 Phosphorus Level October 10, 2009 9:02am 1.7 MG/DL L 2.5-4.9 Platelet Count April 08, 2014 3:45pm 190 10^3/uL N 130-400 Potassium Level April 08, 2014 3:45pm 3.9 MMOL/L N 3.6-5.0 Prothromb Time International Ratio March 13, 2012 6:25am 1.0 N 0.8-1.4 INTERPRETIVE DATASUGGESTED THERAPEUTIC RANGE FOR INR'S: VENOUS THROMBOSIS, PULMONARY EMBOLISM, OR PREVENTION OF SYSTEMIC EMBOLISM (EG. IN ATRIAL FIBRILLATION): 2.0 - 3.0 MECHANICAL PROSTHETIC HEART VALVES: 2.5 - 3.5* *NOTE: INR'S UP TO 4.5 MAY BE NECESSARY IN SELECTED GROUPS OF HIGH RISK PATIENTS. SIXTH CITIZEN [place] COLLEGE OF CHEST PHYSICIANS CONSENSUS CONFERENCE ON ANTITHROMBOTIC THERAPY (2000). Prothrombin Time March 13, 2012 6:25am 13.4 SEC N 12.2-14.7 Comments to Poultry Cutter: ds 4 Red Blood Count April 08, 2014 3:45pm 4.48 10^6/uL N 4.35-5.85 Red Cell Distribution Width April 08, 2014 3:45pm 14.4 % N 10.0-14.5 Sodium Level April 08, 2014 3:45pm 143 MMOL/L N 135-145 Total Bilirubin April 08, 2014 3:45pm 0.5 MG/DL N 0.1-1.0 Total Protein April 08, 2014 3:45pm 6.5 G/DL N 6.4-8.2 Triglycerides Level May 12, 2008 6:45am 182 MG/DL H 30.0-150.0 Troponin I May 30, 2011 9:35am < [...] collected/obtained? YSpecimen Description CLEAN CATCH Urine Specific [place] December 21, 2012 12:30am 1.025 H - [...] YSpecimen Description CLEAN CATCH VLDL Cholesterol May 12, 2008 6:45am 36 MG/DL N 5-40 Vancomycin Level Trough July 03, 2006 7:30am 5 MCG/ML L 10.0-20.0 White Blood Count April 08, 2014 3:45pm 6.1 10^3/uL N 4.3-11.0 Pathology Consult Specimen November [...] of tularemia. THIS TEST WAS PERFORMED AT: [facility]. [address] [place] [address] Princess Montero MD Glucometer May 05, 2010 11:13am 165 MG/DL H 70-110 Comments to Poultry Cutter: RECOVERY #2 Lab Scanned Report May 30, 2011 9:10am Referred Lab Report [id number] - Estimat Glomerular Filtration Rate April 08, 2014 3:45pm > 60 - GFR INTERPRETIVE DATA UNITS FOR ESTIMATED GFR (eGFR): mL/min/1.73 M2 REFERENCE RANGE FOR ESTIMATED GFR (eGFR) eGFR NORMAL eGFR >60 MODERATELY DECREASED eGFR 30-59 SEVERLY DECREASED eGFR 15-29 KIDNEY FAILURE <15 (OR DIALYSIS) Spotted Fever Group IgG Antibody May 03, 2009 2:12pm <1:16 - URGENT MESSAGEPLEASE GIVE A COPY OF THE RML REPORT TO [facility] MICROBIOLOGY DEPARTMENT FOR ALL POSITIVE EHRLICHIA CHAFFEENSIS ANTIBODY RESULTS ON THIS TEST. Spotted Fever Group IgM Antibody May 03, 2009 2:12pm <1:10 - URGENT MESSAGEPLEASE GIVE A COPY OF THE RML REPORT TO [facility] MICROBIOLOGY DEPARTMENT FOR ALL POSITIVE EHRLICHIA CHAFFEENSIS ANTIBODY RESULTS ON THIS TEST. Blood Morphology Comment December 21, 2012 12:40am NORMAL - Creatine Kinase May 30, 2011 9:35am 227 U/L H 1-205 Cardiac Panel Pathologist Review May 30, 2011 9:35am SEE CARDIAC PATH REV - Urine RBC (Auto) December 21, 2012 12:30am NEGATIVE - Has specimen been collected/obtained? YSpecimen Description CLEAN CATCH Fecal Leukocyte Stain Stool December 21, 2012 12:45am MRSA Screen Nasal March 07, 2012 1:58pm MRSA not isolated Urine Culture Urine-Clean Catch December 21, 2012 12:30am Escherichia Coli Gram Stain Abscess-Arm, Left March 30, 2006 8:50am Procedures Procedure Status Date Provider(s) Tracing only of electrocardiogram completed 05/08/14 CHRIS FERRELL MD
--- OUTSIDE RECORDS SUMMARY | 2019-01-15 05:49 | XMS REPORT | Continuity of Care Document ---
Author Author [facility] Organization [facility] Address Unknown Phone Unavailable Support Name Relationship Address Phone CAR HARRIS MD Caregiver [address], [address] [place] [address] MIRYAM ARVIZU DO Caregiver [address] [place] [address] CATA MILAN Next Of Kin [address] [place] [address] Insurance Providers Payer Name Policy Number Subscriber Name Relationship Wps Medicare [id number] Armando Milan 17 Self / Same As Patient Enter Insurance Name [id number] Armando Milan 17 Self / Same As Patient Advance Directives Directive Response Recorded Date/Time Advance Directives Yes 09/29/14 9:20am Health Care Power of Binder Layer Kwesi ELMORET 09/29/14 9:20am Organ Donor No [...] Type Severity Reaction Status Last Updated Penicillins ([id number]) Allergy Mild RASH Active 03/13/12 Sulfa (Sulfonamide Antibiotics) ([id number]) Allergy Unknown Active 01/07 Tetanus Vaccines & Toxoid ([id number]) Allergy Unknown Active 05/01/10 morphine Adverse Reaction [...] F (97.6 - 99.5) Temperature (Calculated Celsius) 36.22187 degrees C (36.4 - 37.5) Temperature Source Temporal Pulse Rate (adult) 62 bpm (60 - 90) Respiratory Rate 20 bpm (12 - 24) O2 Sat by Pulse Oximetry 92 % (88 - 100) Blood Pressure 173/99 mm Hg Blood Pressure 173/99 mm Hg Pain Pain Intensity 0 Pain Pain Intensity 0 Height (Feet) 5 feet Height (Inches) 10 inches Height (Calculated Centimeters) 177.056591 cm Weight (Pounds) 180 pounds Weight (Calculated Kilograms) 81.863425 kilograms Calculated BMI 25.82 Results Laboratory Results [...] Encounter Location Date/Time Registered Emergency Room [facility] 09/29/14 9:21am Recent Diagnosis
--- OUTSIDE RECORDS SUMMARY | 2019-01-15 05:50 | XMS REPORT | Continuity of Care Document ---
Author Author [facility] Organization [facility] Address Unknown Phone Unavailable Care Team Providers Care Vacuum Form Operator Name Role Phone MIRYAM ARVIZU DO PCP Insurance Providers Payer Name Policy Number Subscriber Name Relationship Wps Medicare [id number] Armando Milan 17 Self / Same As Patient Enter Insurance Name [id number] Armando Milan 17 Self / Same As Patient Advance Directives Directive Response Recorded Date/Time Advance Directives Yes 04/08/14 2:58pm Health Care Power of Trust Manager Assistant Kwesi COLE 04/08/14 2:58pm Organ Donor No 04/08/14 2:58pm Resuscitation Status Full Code 04/08/14 2:58pm Problems No known problems or medical conditions. [...] [Centrum Silver] 1 Tab PO DAILY 02/08/08 Active Pseudoephedrine HCl 02/08/08 05/11/08 Discontinued Guaifenesin 02/08/08 [...] Warfarin Sodium 5 Mg PO DAILY 10/21/09 Active Ferrous Sulfate 10/21/09 04/26/10 Discontinued Pantoprazole Sodium [...] Discontinued Alprazolam 1 Tab PO BEDTIME 04/26/10 Active Calcium/Vitamin D 1 Tab PO DAILY 10/09/10 Active Amlodipine/Benazepril HCl 1 Each PO DAILY 10/09/10 03/07/12 Discontinued Phenylephrine Hcl 10 Mg PO NEEDED 10/09/10 03/07/12 Discontinued Alprazolam 1 Each PO NEEDED 10/09/10 03/07/12 Discontinued Naproxen Sodium 220 Mg PO DAILY PRN p 10/09/10 Active Escitalopram Oxalate 1 Each PO [...] Each PO QID PRN 30 Qty 02/20/11 Active Amlodipine Besylate (Norvasc 5 Mg) 5 Mg PO DAILY 03/07/12 Active Metronidazole 1 Each PO THREE TIMES A DAY 30 Qty FOR INFECTION 12/21/12 04/08/14 Discontinued Levofloxacin 1 Each PO DAILY 10 Qty 12/21/12 04/08/14 Discontinued Social History Social History Problem Response Recorded Date/Time Alcohol Use Denies Use 04/08/2014 2:58pm Recreational Drug Use No 04/08/2014 2:58pm Smoking Status Never a Smoker 04/08/2014 2:58pm Query Response Start Date Stop Date Smoking Status Never a Smoker Hospital Discharge Instructions No hospital discharge instructions. Plan of Care No plan of care. Functional Status No functional status results. Allergies, Adverse Reactions, Alerts Allergen Type Severity Reaction Status Last Updated Penicillins ([id number]) Allergy Mild RASH Active 03/13/12 Sulfa (Sulfonamide Antibiotics) ([id number]) Allergy Unknown Active 01/07 Tetanus Vaccines & Toxoid ([id number]) Allergy Unknown Active 05/01/10 morphine Adverse Reaction [...] Vital Signs Vital Response Date/Time Temperature (Fahrenheit) 97.6 degrees F (97.6 - 99.5) Temperature (Calculated Celsius) 36.60545 degrees C (36.4 - 37.5) Temperature Source Temporal Pulse Rate (adult) 66 bpm (60 - 90) Respiratory Rate 18 bpm (12 - 24) O2 Sat by Pulse Oximetry 93 % (88 - 100) Blood Pressure 143/75 mm Hg Pain Pain Intensity 0 Height (Feet) 6 feet Height (Inches) 0 inches Height (Calculated Centimeters) 182.811135 cm Weight (Pounds) 185 pounds Weight (Calculated Kilograms) 83.586988 kilograms Calculated BMI 25.09 Results Test Source [...] A COPY OF THE RML REPORT TO [facility] MICROBIOLOGY DEPARTMENT FOR ALL POSITIVE EHRLICHIA CHAFFEENSIS ANTIBODY RESULTS ON THIS TEST. Ehrlichia chaffeensis IgM Antibody May 03, 2009 2:12pm <1:10 - URGENT MESSAGEPLEASE GIVE A COPY OF THE RML REPORT TO [facility] MICROBIOLOGY DEPARTMENT FOR ALL POSITIVE EHRLICHIA CHAFFEENSIS [...] A COPY OF THE RML REPORT TO [facility] MICROBIOLOGY DEPARTMENT FOR ALL POSITIVE EHRLICHIA CHAFFEENSIS [...] SELECTED GROUPS OF HIGH RISK PATIENTS. SIXTH [place] COLLEGE OF CHEST PHYSICIANS CONSENSUS CONFERENCE ON ANTITHROMBOTIC THERAPY (2000). Prothrombin Time March 13, 2012 6:25am 13.4 SEC N 12.2-14.7 Comments to Die Set Up Worker: ds 4 Red Blood Count April 08, [...] collected/obtained? YSpecimen Description CLEAN CATCH Urine Specific [place] December 21, 2012 12:30am 1.025 H - [...] of tularemia. THIS TEST WAS PERFORMED AT: [facility] [address] [place] [address] Princess Montero MD Glucometer May 05, 2010 11:13am 165 MG/DL H 70-110 Comments to Die Set Up Worker: RECOVERY #2 Lab Scanned Report May 30, 2011 9:10am Referred Lab Report [id number] - Estimat Glomerular Filtration Rate April 08, [...] A COPY OF THE L REPORT TO [facility] MICROBIOLOGY DEPARTMENT FOR ALL POSITIVE EHRLICHIA CHAFFEENSIS ANTIBODY RESULTS ON THIS TEST. Spotted Fever Group IgM Antibody May 03, 2009 2:12pm <1:10 - URGENT MESSAGEPLEASE GIVE A COPY OF THE RML REPORT TO [facility] MICROBIOLOGY DEPARTMENT FOR ALL POSITIVE EHRLICHIA CHAFFEENSIS [...] Abscess-Arm, Left March 30, 2006 8:50am Procedures No known history of procedures. Encounters Encounter Location Date/Time Departed Emergency Room [facility] 04/08/14 2:38pm Recent Diagnosis
--- OUTSIDE RECORDS SUMMARY | 2019-01-15 05:50 | XMS REPORT | Continuity of Care Document ---
Author Author [facility] Organization [facility] Address Unknown Phone Unavailable Care Team Providers Care Transformer Inspector Name Role Phone MIRYAM ARVIZU DO PCP Insurance Providers Payer Name Policy Number Subscriber Name Relationship Wps Medicare [id number] Armando Milan 17 Self / Same As Patient Enter Insurance Name [id number] Armando Milan 17 Self / Same As Patient Advance Directives Directive Response Recorded Date/Time Advance Directives Yes 05/10/14 11:00am Health Care Power of Checker Kwesi [place] 05/10/14 11:00am Organ Donor No 05/10/14 11:00am Resuscitation Status Full Code 05/10/14 11:00am Problems No known problems or medical conditions. [...] Response Recorded Date/Time Alcohol Use Denies Use 05/10/2014 11:00am Recreational Drug Use No 05/10/2014 11:00am Recent Foreign Travel No 05/10/2014 11:00am Recent Infectious Disease Exposure No 05/10/2014 11:00am Hospitalization with Isolation Denies 05/10/2014 11:00am Smoking Status Never a Smoker 05/10/2014 11:00am Query Response Start Date Stop Date Smoking Status Never a Smoker Hospital Discharge Instructions No hospital discharge instructions. Plan of Care No plan of care. Functional Status No functional status results. Allergies, Adverse Reactions, Alerts Allergen Type Severity Reaction Status Last Updated Penicillins ([id number]) Allergy Mild RASH Active 03/13/12 Sulfa (Sulfonamide Antibiotics) ([id number]) Allergy Unknown Active 01/07 Tetanus Vaccines & Toxoid ([id number]) Allergy Unknown Active 05/01/10 morphine Adverse Reaction [...] Vital Signs Vital Response Date/Time Temperature (Fahrenheit) 98.1 degrees F (97.6 - 99.5) Temperature (Calculated Celsius) 36.77927 degrees C (36.4 - 37.5) Temperature Source Tympanic Pulse Rate (adult) 7 bpm (60 - 90) Respiratory Rate 18 bpm (12 - 24) O2 Sat by Pulse Oximetry 96 % (88 - 100) Blood Pressure 142/72 mm Hg Pain Pain Intensity 0 Height (Feet) 6 feet Height (Inches) 0.00 inches Height (Calculated Centimeters) 182.485843 cm Weight (Pounds) 188 pounds Weight (Ounces) 0.0 oz Weight (Calculated Grams) 90427.366 gm Weight (Calculated Kilograms) 85.350943 kilograms Calculated BMI 25.09 Results Test Source [...] A COPY OF THE RML REPORT TO [facility] MICROBIOLOGY DEPARTMENT FOR ALL POSITIVE EHRLICHIA CHAFFEENSIS ANTIBODY RESULTS ON THIS TEST. Ehrlichia chaffeensis IgM Antibody May 03, 2009 2:12pm <1:10 - URGENT MESSAGEPLEASE GIVE A COPY OF THE RML REPORT TO [facility] MICROBIOLOGY DEPARTMENT FOR ALL POSITIVE EHRLICHIA [...] A COPY OF THE RML REPORT TO [facility] MICROBIOLOGY DEPARTMENT FOR ALL POSITIVE EHRLICHIA [...] SELECTED GROUPS OF HIGH RISK PATIENTS. SIXTH [place] [employer] PH[employer] CONSENSUS CONFERENCE ON [...] collected/obtained? YSpecimen Description CLEAN CATCH Urine Specific [place] December 21, 2012 12:30am 1.025 H - [...] of tularemia. THIS TEST WAS PERFORMED AT: [employer]. [address] [place] [address] Princess Montero MD Glucometer May 05, 2010 11:13am 165 MG/DL H 70-110 Comments to High School Librarian: RECOVERY #2 Lab Scanned Report May 30, 2011 9:10am Referred Lab Report [id number] - Estimat Glomerular Filtration Rate May 10, [...] A COPY OF THE RML REPORT TO [facility] MICROBIOLOGY DEPARTMENT FOR ALL POSITIVE EHRLICHIA CHAFFEENSIS ANTIBODY RESULTS ON THIS TEST. Spotted Fever Group IgM Antibody May 03, 2009 2:12pm <1:10 - URGENT MESSAGEPLEASE GIVE A COPY OF THE RML REPORT TO [facility] MICROBIOLOGY DEPARTMENT FOR ALL POSITIVE EHRLICHIA [...] SELECTED GROUPS OF HIGH RISK PATIENTS. SIXTH [place] [employer] OF [employer]ST [employer] CONSENSUS CONFERENCE ON ANTITHROMBOTIC THERAPY (2000). Fecal Leukocyte Stain Stool December 21, 2012 12:45am MRSA Screen Nasal May 08, 2014 9:25am MRSA not isolated Urine Culture Urine-Clean Catch December 21, 2012 12:30am Escherichia Coli Gram Stain Abscess-Arm, Left March 30, 2006 8:50am Procedures Procedure Status Date Provider(s) Tracing only of electrocardiogram completed 05/08/14 CHRIS FERRELL MD Encounters Encounter Location Date/Time Departed Emergency Room [facility] 05/10/14 10:49am Recent Diagnosis
--- OUTSIDE RECORDS SUMMARY | 2019-01-15 05:51 | XMS REPORT | Continuity of Care Document ---
Author Organization Unknown Address Unknown Allergies Active Description Code Type Severity Reaction Onset Reported/Identified Relationship to Patient Clinical Status Yes latex [id number] Drug Allergy Unknown N/A 05/22/2007 Yes meperidine [id number] Drug Allergy Unknown N/A 05/01/2010 Yes Sulfa (Sulfonamide Antibiotics) [id number] Drug Allergy Unknown N/A 2009 Yes Tetanus Vaccines Toxoid [id number] Drug Allergy Unknown N/A 05/01/2010 Yes Tetanus Vaccines and Toxoid [id number] Drug Allergy Unknown N/A 2009 Yes morphine Drug Allergy N/A N/A 05/14/2011 Yes Penicillins Drug Allergy N/A N/A 05/14/2011 Yes morphine Drug Allergy 05/14/2011 Yes Penicillins Drug Allergy 05/14/2011 Yes ALLERGY TO TAPE PLASTIC TAPE ALLERGY TO TAPE PLASTIC TAPE Moderate SKIN BREAKS OUT 05/30/2011 Yes morphine [id number] Drug Allergy Mild N V 05/30/2011 Yes EPIDURAL EPIDURAL Unknown N/A 05/30/2011 Yes latex Drug Allergy N/A N/A 06/20/2014 Yes Penicillins [id number] Drug Allergy Mild RASH 03/18/2018 Medications There is no data. Problems Date [...] DON APRN 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 ANXIETY 07/03/2010 ARIAN LARSONNMARY GRACE 311 DEPRESSIVE DISORDER NOS 07/03/2010 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 ANXIETY 07/03/2010 311 DEPRESSIVE DISORDER NOS 07/03/2010 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 ANXIETY 07/03/2010 311 DEPRESSIVE DISORDER NOS 07/03/2010 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 ANXIETY 07/03/2010 311 DEPRESSIVE DISORDER NOS 07/03/2010 ARIAN LARSONNMARY GRACE 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 ANXIETY 07/03/2010 MARY GRACE DON APRN 311 DEPRESSIVE DISORDER NOS 07/03/2010 MARY GRACE DON APRN 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 ANXIETY 07/03/2010 ARIAN LARSONNMARY GRACE 311 DEPRESSIVE DISORDER NOS 07/03/2010 ARIAN LARSONJeremiah MARY GRACE BELLO 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 ANXIETY 07/03/2010 MARY GRACE DON APRN 311 DEPRESSIVE DISORDER NOS 07/03/2010 MARY GRACE DON APRN 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 ANXIETY 07/03/2010 MARY GRACE ODN APRN 311 DEPRESSIVE DISORDER NOS 07/03/2010 ARIAN LARSONNMARY GRACE 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 ANXIETY 07/03/2010 MARY GRACE DON APRN 311 DEPRESSIVE DISORDER NOS 09/03/2010 ARIAN LARSONNMARY GRACE 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 09/03/2010 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1 RENAL ARTERY ATHEROSCLER [...] SIDDIQUI DO Ot 414.01 CORONARY ATHEROSCLEROSIS OF [place] CORON 04/08/2014 HANNAH SIDDIQUI DO Ot 459.89 [...] FERRELL MD Ot 414.01 CORONARY ATHEROSCLEROSIS OF [place] CORON 05/09/2014 CHRIS FERRELL MD Ot 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 NODE DYSFUNCT 05/09/2014 CHRIS FERRELL MD Ot 996.72 OTH COMPLICATIONS DUE TO OTH CARD DEVICE 05/09/2014 CHRIS FERRELL MD Ot E878.1 ABN REACT-ARTIF IMPLANT 05/09/2014 CHRIS FERRELL MD Ot V53.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 05/09/2014 CHRIS FERRELL MD Ot V58.61 ANTICOAGULANTS,LT,CURRENT USE 05/09/2014 CHRIS FERRELL MD, Ot V58.69 OTH MED,LT,CURRENT USE 05/10/2014 Ot 709.8 SKIN DISORDERS NEC 05/10/2014 Ot V45.89 POSTSURGICAL STATES NEC 05/12/2014 CAR HARRIS MD Ot 989.5 TOXIC EFFECT VENOM 05/12/2014 CAR HARRIS MD Ot E000.8 OTHER EXTERNAL CAUSE STATUS 05/12/2014 CAR HARRIS MD Ot E905.3 HORNET/WASP/BEE STING 05/15/2014 SIVA WHALEN BRIDGE INSTRUCTOR Ot 719.45 JOINT PAIN-PELVIS 05/15/2014 SIVA WHALEN BRIDGE INSTRUCTOR Ot 924.01 CONTUSION OF HIP 05/15/2014 SIVA WHALEN BRIDGE INSTRUCTOR Ot E000.8 OTHER EXTERNAL CAUSE STATUS 05/15/2014 SIVA WHALEN BRIDGE INSTRUCTOR Ot E928.9 ACCIDENT NOS 08/14/2014 MIRYAM ARVIZU [...] 427.81 04/10/2015 CHRIS FERRELL MD Ot 435.9 04/28/2015 LUHLUCIANA WIRE SETTER Ot 781.2 04/28/2015 LUHLUCIANA WIRE SETTER Ot 784.0 04/28/2015 LUHLUCIANA WIRE SETTER Ot V15.88 05/13/2015 LUHLUCIANA WIRE SETTER Ot 781.2 05/13/2015 LUHLUCIANA WIRE SETTER Ot 784.0 05/13/2015 [facility] LUCIANA Tanner WIRE SETTER Ot V15.88 03/03/2016 DANIELA ALMARAZTH K Ot I10 ESSENTIAL (PRIMARY) HYPERTENSION 03/03/2016 DANIELA ALMARAZTH K Ot I25.10 ATHSCL HEART DISEASE OF [place] CORONARY 03/03/2016 DANIELA ALMARAZTH K Ot 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 03/03/2016 DANIELA ALMARAZTH K Ot R06.02 SHORTNESS OF BREATH 03/05/2016 DANIELA ALMARAZTH K Ot I10 ESSENTIAL (PRIMARY) HYPERTENSION 03/05/2016 DANIELA ALMARAZTH K Ot I25.10 ATHSCL HEART DISEASE OF [place] CORONARY 03/05/2016 DANIELA ALMARAZTH K Ot 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 03/05/2016 TOMAS ALMARAZDITH K Ot R06.02 SHORTNESS OF BREATH 03/24/2016 DANIELA ALMARAZTH K Ot I10 ESSENTIAL (PRIMARY) HYPERTENSION 03/24/2016 DANIELA ALMARAZTH K Ot I25.10 ATHSCL HEART DISEASE OF [place] CORONARY 03/24/2016 DANIELA ALMARAZTH K Ot 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 03/24/2016 DANIELA ALMARAZTH K Ot R06.02 SHORTNESS OF BREATH 04/05/2016 TOMAS ALMARAZDITH K Ot I10 ESSENTIAL (PRIMARY) HYPERTENSION 04/05/2016 TOMAS ALMARAZDITH K Ot I25.10 ATHSCL HEART DISEASE OF [place] CORONARY 04/05/2016 TOMAS ALMARAZDITH K Ot 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 04/05/2016 MEJIASCORINNE KNAPP Ot R06.02 SHORTNESS OF BREATH 11/14/2016 MIRYAM AMARAL DO Ot M47.812 SPONDYLOSIS W/O MYELOPATHY OR RADICULOPA 11/14/2016 MIRYAM AMARAL DO Ot 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 11/14/2016 MIRYAM AMARAL DO Ot S01.112A LACERATION W/O FB OF LEFT EYELID AND PER 11/14/2016 MIRYAM AMARAL DO Ot W18.30XA FALL ON SAME LEVEL, UNSPECIFIED, INITIAL 11/14/2016 MIRYAM AMARAL DO Ot Y92.[address] 11/14/2016 MIRYAM AMARAL DO Ot Y99.8 [...] 11/14/2016 Ot 729.81 SWELLING OF LIMB 11/14/2016 RIDLUCIANA ELISE BRIDGE INSTRUCTOR Ot 721.2 THORACIC SPONDYLOSIS 11/14/2016 RIDINGS, LUCIANA C BRIDGE INSTRUCTOR Ot 737.30 IDIOPATHIC SCOLIOSIS 11/14/2016 RIDLUCIANA ELISE C BRIDGE INSTRUCTOR Ot 789.00 ABDOMINAL PAIN, UNSPECIFIED SITE 11/14/2016 [...] FERRELL MD Ot 401.9 HYPERTENSION NOS 11/14/2016 GHASSAN MARCANO, CHRIS Gonzalez Ot 414.00 CORON ATHEROSCLER NOS TYPE VESSEL, NATIV 11/14/2016 GHASSAN MARCANO, CHRIS Gonzalez Ot 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 NODE DYSFUNCT 11/14/2016 GHASSAN MARCANO, CHRIS Gonzalez Ot 435.9 TRANS CEREB ISCHEMIA NOS 11/14/2016 LUHLUCIANA WIRE SETTER Ot 781.2 ABNORMALITY OF GAIT 11/14/2016 LUCIANA ARVIZU WIRE SETTER Ot 784.0 HEADACHE 11/14/2016 LUCIANA ARVIZU WIRE SETTER Ot V15.88 HISTORY OF FALL 11/14/2016 CORINNE ALMARAZ Ot I10 ESSENTIAL (PRIMARY) HYPERTENSION 11/14/2016 CORINNE ALMARAZ Ot I25.10 ATHSCL HEART DISEASE OF [place] CORONARY 11/14/2016 CORINNE ALMARAZ Ot 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 11/14/2016 CORINNE ALMARAZ Ot R06.02 SHORTNESS OF BREATH 11/16/2016 MIRYAM AMARAL DO Ot M47.812 SPONDYLOSIS W/O MYELOPATHY OR RADICULOPA 11/16/2016 MIRYAM AMARAL DO Ot 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 11/16/2016 MIRYAM AMARAL DO Ot S01.112A LACERATION W/O FB OF LEFT EYELID AND PER 11/16/2016 MIRYAM AMRAAL DO Ot W18.30XA FALL ON SAME LEVEL, UNSPECIFIED, INITIAL 11/16/2016 MIRYAM AMARAL DO Ot Y92.[address] 11/16/2016 MIRYAM AMARAL DO Ot Y99.8 [...] 11/25/2016 Ot 729.81 SWELLING OF LIMB 11/25/2016 LUCIANA SHAH BRIDGE INSTRUCTOR Ot 721.2 THORACIC SPONDYLOSIS 11/25/2016 LUCIANA SHAH BRIDGE INSTRUCTOR Ot 737.30 IDIOPATHIC SCOLIOSIS 11/25/2016 LUCIANA SHAH BRIDGE INSTRUCTOR Ot 789.00 ABDOMINAL PAIN, UNSPECIFIED SITE 11/25/2016 [...] TRANS CEREB ISCHEMIA NOS 11/25/2016 LUCIANA ARVIZU WIRE SETTER Ot 781.2 ABNORMALITY OF GAIT 11/25/2016 LUCIANA ARVIZU WIRE SETTER Ot 784.0 HEADACHE 11/25/2016 LUCIANA ARVIZU WIRE SETTER Ot V15.88 HISTORY OF FALL 11/25/2016 CORINNE ALMARAZ Ot I10 ESSENTIAL (PRIMARY) HYPERTENSION 11/25/2016 CORINNE ALMARAZ Ot I25.10 ATHSCL HEART DISEASE OF [place] CORONARY 11/25/2016 CORINNE ALMARAZ Ot 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 11/25/2016 CORINNE ALMARAZ Ot R06.02 SHORTNESS OF BREATH 12/27/2016 CORINNE ALMARAZ Ot I10 ESSENTIAL (PRIMARY) HYPERTENSION 12/27/2016 CORINNE ALMARAZ Ot I25.10 ATHSCL HEART DISEASE OF [place] CORONARY 12/27/2016 CORINNE ALMARAZ Ot 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 12/27/2016 CORINNE ALMARAZ Ot R06.02 SHORTNESS OF BREATH 01/03/2017 YESICA HONG BRIDGE INSTRUCTOR Ot Y84.4 ASPIRATION OF FLUID CAUSE ABN REACT/COMP 01/03/2017 GELYLUANNEN R BRIDGE INSTRUCTOR Ot Y84.4 ASPIRATION OF FLUID CAUSE ABN REACT/COMP 01/03/2017 GELY YESICA R BRIDGE INSTRUCTOR Ot Y84.4 ASPIRATION OF FLUID CAUSE ABN REACT/COMP 01/05/2017 YESICA HONG R BRIDGE INSTRUCTOR Ot T17.908A UNSP FB IN RESP TRACT, PART UNSP CAUSING 01/05/2017 GELYYESICA R BRIDGE INSTRUCTOR Ot Y84.4 ASPIRATION OF FLUID CAUSE ABN REACT/COMP 01/31/2017 YESICA HONG R BRIDGE INSTRUCTOR Ot T17.908A UNSP FB IN RESP TRACT, PART UNSP CAUSING 01/31/2017 YESICA HONG R BRIDGE INSTRUCTOR Ot Y84.4 ASPIRATION OF FLUID CAUSE ABN REACT/COMP 02/21/2017 YESICA HONG R BRIDGE INSTRUCTOR Ot T17.908A UNSP FB IN RESP TRACT, PART UNSP CAUSING 02/21/2017 YESICA HONG R BRIDGE INSTRUCTOR Ot Y84.4 ASPIRATION OF FLUID CAUSE ABN REACT/COMP 06/03/2017 CORINNE ALMARAZ Ot F41.9 ANXIETY DISORDER, UNSPECIFIED 06/03/2017 CORINNE ALMARAZ Ot I10 ESSENTIAL (PRIMARY) HYPERTENSION 06/03/2017 CORINNE ALMARAZ Ot I25.10 ATHSCL HEART DISEASE OF [place] CORONARY 06/03/2017 CORINNE ALMARAZ Ot 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 07/04/2017 CORINNE ALMARAZ Ot F41.9 ANXIETY DISORDER, UNSPECIFIED 07/04/2017 CORINNE ALMARAZ Ot I10 ESSENTIAL (PRIMARY) HYPERTENSION 07/04/2017 CORINNE ALMARAZ Ot I25.10 ATHSCL HEART DISEASE OF [place] CORONARY 07/04/2017 CORINNE ALMARAZ Ot 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 03/05/2018 AUGUSTINE MARCANO, MANUEL Muñiz Ot E03.9 HYPOTHYROIDISM, UNSPECIFIED 03/05/2018 AUGUSTINE MARCANO, MANUEL Muñiz Ot F41.9 ANXIETY DISORDER, UNSPECIFIED 03/05/2018 AUGUSTINE MARCANO, MANUEL Muñiz Ot G47.9 SLEEP DISORDER, UNSPECIFIED 03/05/2018 AUGUSTINE MARCANO, MANUEL Muñiz Ot K21.9 GASTRO-ESOPHAGEAL REFLUX DISEASE WITHOUT 03/05/2018 AUGUSTINE MARCANO, MANUEL Muñiz Ot M25.561 PAIN IN RIGHT KNEE 03/05/2018 AUGUSTINE MARCANO, MANUEL Muñiz Ot R40.2142 COMA SCALE, EYES OPEN, SPONTANEOUS, EMR 03/05/2018 AUGUSTINE MARCANO, MANUEL Muñiz Ot R40.2252 COMA SCALE, BEST VERBAL RESPONSE, ORIENT 03/05/2018 AUGUSTINE MARCANO, MANUEL Antonino Ot R40.2362 COMA SCALE, BEST MOTOR RESPONSE, OBEYS C 03/05/2018 AUGUSTINE MARCANO, MANUEL Muñiz Ot S09.90XA UNSPECIFIED INJURY OF HEAD, INITIAL ENCO 03/05/2018 AUGUSTINE MARCANO, MANUEL Antonino Ot S80.01XA CONTUSION OF RIGHT KNEE, INITIAL ENCOUNT 03/05/2018 AUGUSTINE MARCANO, MANUEL Muñiz Ot W01.10XA FALL SAME LEV FROM SLIP/TRIP W STRIKE AG 03/05/2018 AUGUSTINE MARCANO, MANUEL Muñiz Ot Y92.[address] FPC PLACE 03/05/2018 AUGUSTINE MARCANO, MANUEL Antonino Ot Z88.0 ALLERGY STATUS TO PENICILLIN 03/05/2018 AUGUSTINE MARCANO, MANUEL Muñiz Ot Z88.2 ALLERGY STATUS TO SULFONAMIDES STATUS 03/05/2018 AUGUSTINE MARCANO, MANUEL Muñiz Ot Z88.6 ALLERGY STATUS TO ANALGESIC AGENT STATUS 03/05/2018 AUGUSTINE MARCANO, MANUEL Antonino Ot Z88.7 ALLERGY STATUS TO SERUM AND VACCINE STAT 03/05/2018 AUGUSTINE MARCANO, MANUEL Antonino Ot Z90.89 ACQUIRED ABSENCE OF OTHER ORGANS 03/05/2018 AUGUSTINE MARCANO, MANUEL Muñiz Ot Z91.040 LATEX ALLERGY STATUS 03/05/2018 AUGUSTINE MARCANO, MANUEL Muñiz Ot Z95.0 PRESENCE OF CARDIAC PACEMAKER 03/05/2018 AUGUSTINE MARCANO, MANUEL Muñiz Ot Z96.653 PRESENCE OF ARTIFICIAL KNEE JOINT, BILAT 03/07/2018 AUGUSTINE MARCANO, MANUEL Muñiz Ot E03.9 HYPOTHYROIDISM, UNSPECIFIED 03/07/2018 AUGUSTINE MARCANO, MANUEL Antonino Ot F41.9 ANXIETY DISORDER, UNSPECIFIED 03/07/2018 AUGUSTINE MARCANO, MANUEL Antonino Ot G47.9 SLEEP DISORDER, UNSPECIFIED 03/07/2018 AUGUSTINE MARCANO, MANUEL Muñiz Ot K21.9 GASTRO-ESOPHAGEAL REFLUX DISEASE WITHOUT 03/07/2018 AUGUSTINE MARCANO, MANUEL Muñiz Ot M25.561 PAIN IN RIGHT KNEE 03/07/2018 AUGUSTINE MARCANO, MANUEL Muñiz Ot R40.2142 COMA SCALE, EYES OPEN, SPONTANEOUS, EMR 03/07/2018 AUGUSTINE MARCANO, MANUEL Muñiz Ot R40.2252 COMA SCALE, BEST VERBAL RESPONSE, ORIENT 03/07/2018 AUGUSTINE MARCANO, MANUEL Muñiz Ot R40.2362 COMA SCALE, BEST MOTOR RESPONSE, OBEYS C 03/07/2018 AUGUSTINE MARCANO, MANUEL Muñiz Ot S09.90XA UNSPECIFIED INJURY OF HEAD, INITIAL ENCO 03/07/2018 AUGUSTINE MARCANO, MANUEL Muñiz Ot S80.01XA CONTUSION OF RIGHT KNEE, INITIAL ENCOUNT 03/07/2018 AUGUSTINE MARCANO, MANUEL Muñiz Ot W01.10XA FALL SAME LEV FROM SLIP/TRIP W STRIKE AG 03/07/2018 AUGUSTINE MARCANO, MANUEL Muñiz Ot Y92.[address] FPC PLACE 03/07/2018 AUGUSTINE MARCANO, MANUEL Antonino Ot Z88.0 ALLERGY STATUS TO PENICILLIN 03/07/2018 AUGUSTINE MARCANO, MANUEL Muñiz Ot Z88.2 ALLERGY STATUS TO SULFONAMIDES STATUS 03/07/2018 AUGUSTINE MARCANO, MANUEL Muñiz Ot Z88.6 ALLERGY STATUS TO ANALGESIC AGENT STATUS 03/07/2018 AUGUSTINE MARCANO, MANUEL Antonino Ot Z88.7 ALLERGY STATUS TO SERUM AND VACCINE STAT 03/07/2018 AUGUSTINE MARCANO, MANUEL Antonino Ot Z90.89 ACQUIRED ABSENCE OF OTHER ORGANS 03/07/2018 AUGUSTINE MARCANO, MANUEL Muñiz Ot Z91.040 LATEX ALLERGY STATUS 03/07/2018 AUGUSTINE MARCANO, MANUEL Muñiz Ot Z95.0 PRESENCE OF CARDIAC PACEMAKER 03/07/2018 AUGUSTINE MARCANO, MANUEL Muñiz Ot Z96.653 PRESENCE OF ARTIFICIAL KNEE JOINT, BILAT 03/11/2018 AUGUSTINE MARCANO, MANUEL Muñiz Ot E03.9 HYPOTHYROIDISM, UNSPECIFIED 03/11/2018 AUGUSTINE MARCANO, MANUEL Muñiz Ot F41.9 ANXIETY DISORDER, UNSPECIFIED 03/11/2018 AUGUSTINE MARCANO, MANUEL Muñiz Ot G47.9 SLEEP DISORDER, UNSPECIFIED 03/11/2018 AUGUSTINE MARCANO, MANUEL Muñiz Ot K21.9 GASTRO-ESOPHAGEAL REFLUX DISEASE WITHOUT 03/11/2018 AUGUSTINE MARCANO, MANUEL Muñiz Ot M25.561 PAIN IN RIGHT KNEE 03/11/2018 AUGUSTINE MARCANO, MANUEL Muñiz Ot R40.2142 COMA SCALE, EYES OPEN, SPONTANEOUS, EMR 03/11/2018 AUGUSTINE MARCANO, MANUEL Muñiz Ot R40.2252 COMA SCALE, BEST VERBAL RESPONSE, ORIENT 03/11/2018 AUGUSTINE MARCANO, MANUEL Muñiz Ot R40.2362 COMA SCALE, BEST MOTOR RESPONSE, OBEYS C 03/11/2018 AUGUSTINE MARCANO, MANUEL Muñiz Ot S09.90XA UNSPECIFIED INJURY OF HEAD, INITIAL ENCO 03/11/2018 AUGUSTINE MARCANO, MANUEL Muñiz Ot S80.01XA CONTUSION OF RIGHT KNEE, INITIAL ENCOUNT 03/11/2018 AUGUSTINE MARCANO, MANUEL Muñiz Ot W01.10XA FALL SAME LEV FROM SLIP/TRIP W STRIKE AG 03/11/2018 AUGUSTINE MARCANO, MANUEL Muñiz Ot Y92.[address] [facility]PC PLACE 03/11/2018 AUGUSTINE MARCANO, MANUEL Muñiz Ot Z88.0 ALLERGY STATUS TO PENICILLIN 03/11/2018 MANUEL BRADSHAW MD Ot Z88.2 ALLERGY STATUS TO SULFONAMIDES STATUS 03/11/2018 AUGUSTINE MARCANO MANUEL Antonino Ot Z88.6 ALLERGY STATUS TO ANALGESIC AGENT STATUS 03/11/2018 AUGUSTINE MARCANO, MANUEL Antonino Ot Z88.7 ALLERGY STATUS TO SERUM AND VACCINE STAT 03/11/2018 AUGUSTINE MARCANO MANUEL Antonino Ot Z90.89 ACQUIRED ABSENCE OF OTHER ORGANS 03/11/2018 AUGUSTINE MARCANO, MANUEL Antonino Ot Z91.040 LATEX ALLERGY STATUS 03/11/2018 AUGUSTINE MARCANO, MANUEL Antonino Ot Z95.0 PRESENCE OF CARDIAC PACEMAKER 03/11/2018 AUGUSTINE MARCANO MANUEL Antonino Ot Z96.653 PRESENCE OF ARTIFICIAL KNEE JOINT, BILAT 03/18/2018 RIDINGS, LUCIANA C BRIDGE INSTRUCTOR Ot 721.2 THORACIC SPONDYLOSIS 03/18/2018 RIDINGS, LUCIANA C BRIDGE INSTRUCTOR Ot 737.30 IDIOPATHIC SCOLIOSIS 03/18/2018 RIDINGS, LUCIANA C BRIDGE INSTRUCTOR Ot 789.00 ABDOMINAL PAIN, UNSPECIFIED SITE 03/18/2018 MIRYAM ARVIZU DO Ot 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 03/18/2018 MIRYAM ARVIZU DO Ot 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 03/18/2018 CHRIS FERRELL MD Ot 401.9 HYPERTENSION NOS 03/18/2018 GHASSAN MARCANO, CHRIS Gonzalez Ot 414.00 CORON ATHEROSCLER NOS TYPE VESSEL, NATIV 03/18/2018 CHRIS FERRELL MD Ot 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 NODE DYSFUNCT 03/18/2018 CHRIS FERRELL MD Ot 435.9 TRANS CEREB ISCHEMIA NOS 03/18/2018 CHRIS FERRELL MD Ot 401.9 HYPERTENSION NOS 03/18/2018 CHRIS FERRELL MD Ot 414.00 CORON ATHEROSCLER NOS TYPE VESSEL, NATIV 03/18/2018 CHRIS FERRELL MD Ot 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 NODE DYSFUNCT 03/18/2018 CHRIS FERRELL MD Ot 435.9 TRANS CEREB ISCHEMIA NOS 03/18/2018 LUCIANA ARVIZU WIRE SETTER Ot 781.2 ABNORMALITY OF GAIT 03/18/2018 LUCIANA ARVIZU WIRE SETTER Ot 784.0 HEADACHE 03/18/2018 LUCIANA ARVIZU WIRE SETTER Ot V15.88 HISTORY OF FALL 03/18/2018 CORINNE ALMARAZ Ot I10 ESSENTIAL (PRIMARY) HYPERTENSION 03/18/2018 CORINNE ALMARAZ Ot I25.10 ATHSCL HEART DISEASE OF [place] CORONARY 03/18/2018 CORINNE ALMARAZ Ot 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 03/18/2018 CORINNE ALMARAZ Ot R06.02 SHORTNESS OF BREATH 03/18/2018 YESICA HONG APRN Ot T17.908A UNSP FB IN RESP TRACT, PART UNSP CAUSING 03/18/2018 YESICA HONG APRN Ot Y84.4 ASPIRATION OF FLUID CAUSE ABN REACT/COMP 03/18/2018 CORINNE ALMARAZ Ot F41.9 ANXIETY DISORDER, UNSPECIFIED 03/18/2018 CORINNE ALMARAZ Ot I10 ESSENTIAL (PRIMARY) HYPERTENSION 03/18/2018 CORINNE ALMARAZ Ot I25.10 ATHSCL HEART DISEASE OF [place] CORONARY 03/18/2018 CORINNE ALMARAZ Ot 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 03/18/2018 SIVA WHALEN APRN Ot E03.9 HYPOTHYROIDISM, UNSPECIFIED 03/18/2018 SIVA WHALEN APRN Ot F32.9 MAJOR DEPRESSIVE DISORDER, SINGLE EPISOD 03/18/2018 SIVA WHALEN APRN Ot F41.9 ANXIETY DISORDER, UNSPECIFIED 03/18/2018 SIVA WHALEN APRN Ot I10 ESSENTIAL (PRIMARY) HYPERTENSION 03/18/2018 SIVA WHALNE APRN Ot I25.10 ATHSCL HEART DISEASE OF [place] CORONARY 03/18/2018 SIVA WHALEN APRN Ot K21.9 GASTRO-ESOPHAGEAL REFLUX DISEASE WITHOUT 03/18/2018 SIVA WHALEN APRN Ot S09.90XA UNSPECIFIED INJURY OF HEAD, INITIAL ENCO 03/18/2018 SIVA WHALEN APRN Ot W01.198A FALL SAME LEV FROM SLIP/TRIP W STRIKE AG 03/18/2018 SIVA WHALEN APRN Ot Z86.73 PRSNL HX OF TIA (TIA), AND CEREB INFRC W 03/18/2018 SIVA WHALEN APRN Ot Z88.0 ALLERGY STATUS TO PENICILLIN 03/18/2018 SIVA WHALEN APRN Ot Z88.2 ALLERGY STATUS TO SULFONAMIDES STATUS 03/18/2018 SIVA WHALEN APRN Ot Z88.5 ALLERGY STATUS TO NARCOTIC AGENT STATUS 03/18/2018 SIVA WHALEN APRN Ot Z88.7 ALLERGY STATUS TO SERUM AND VACCINE STAT 03/18/2018 SIVA WHALEN APRN Ot Z90.89 ACQUIRED ABSENCE OF OTHER ORGANS 03/18/2018 SIVA WHALEN APRN Ot Z96.653 PRESENCE OF ARTIFICIAL KNEE JOINT, BILAT 03/21/2018 SIVA WHALEN APRN Ot E03.9 HYPOTHYROIDISM, UNSPECIFIED 03/21/2018 SIVA WHALEN APRN Ot F32.9 MAJOR DEPRESSIVE DISORDER, SINGLE EPISOD 03/21/2018 SIVA WHALEN APRN Ot F41.9 ANXIETY DISORDER, UNSPECIFIED 03/21/2018 SIVA WHALEN APRN Ot I10 ESSENTIAL (PRIMARY) HYPERTENSION 03/21/2018 SIVA WHALEN APRN Ot I25.10 ATHSCL HEART DISEASE OF [place] CORONARY 03/21/2018 SIVA WHALEN APRN Ot K21.9 GASTRO-ESOPHAGEAL REFLUX DISEASE WITHOUT 03/21/2018 SIVA WHALEN APRN Ot S09.90XA UNSPECIFIED INJURY OF HEAD, INITIAL ENCO 03/21/2018 SIVA WHALEN APRN Ot W01.198A FALL SAME LEV FROM SLIP/TRIP W STRIKE AG 03/21/2018 SIVA WHALEN APRN Ot Z86.73 PRSNL HX OF TIA (TIA), AND CEREB INFRC W 03/21/2018 SIVA WHALEN APRN Ot Z88.0 ALLERGY STATUS TO PENICILLIN 03/21/2018 SIVA WHALEN APRN Ot Z88.2 ALLERGY STATUS TO SULFONAMIDES STATUS 03/21/2018 SIVA WHALEN APRN Ot Z88.5 ALLERGY STATUS TO NARCOTIC AGENT STATUS 03/21/2018 SIVA WHALEN APRN Ot Z88.7 ALLERGY STATUS TO SERUM AND VACCINE STAT 03/21/2018 SIVA WHALEN APRN Ot Z90.89 ACQUIRED ABSENCE OF OTHER ORGANS 03/21/2018 SIVA WHALEN APRN Ot Z96.653 PRESENCE OF ARTIFICIAL KNEE JOINT, BILAT 07/17/2018 YESICA HONG BRIDGE INSTRUCTOR Ot J84.10 PULMONARY FIBROSIS, UNSPECIFIED 07/17/2018 YESICA HONG BRIDGE INSTRUCTOR Ot 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 LUNG 07/17/2018 YESICA HONG BRIDGE INSTRUCTOR Ot Z95.0 PRESENCE OF CARDIAC PACEMAKER 07/20/2018 YESICA HONG BRIDGE INSTRUCTOR Ot J84.10 PULMONARY FIBROSIS, UNSPECIFIED 07/20/2018 YESICA HONG BRIDGE INSTRUCTOR Ot 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 LUNG 07/20/2018 YESICA HONG BRIDGE INSTRUCTOR Ot Z95.0 PRESENCE OF CARDIAC PACEMAKER 07/21/2018 YESICA HONG BRIDGE INSTRUCTOR Ot J84.10 PULMONARY FIBROSIS, UNSPECIFIED 07/21/2018 YESICA HONG BRIDGE INSTRUCTOR Ot 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 LUNG 07/21/2018 YESICA HONG BRIDGE INSTRUCTOR Ot Z95.0 PRESENCE OF CARDIAC PACEMAKER 08/14/2018 YESICA HONG BRIDGE INSTRUCTOR Ot J84.10 PULMONARY FIBROSIS, UNSPECIFIED 08/14/2018 YESICA HONG BRIDGE INSTRUCTOR Ot 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 LUNG 08/14/2018 YESICA HONG BRIDGE INSTRUCTOR Ot Z95.0 PRESENCE OF CARDIAC PACEMAKER 10/31/2018 CORINNE ALMARAZ Ot I10 ESSENTIAL (PRIMARY) HYPERTENSION 10/31/2018 CORINNE ALMARAZ Ot I25.10 ATHSCL HEART DISEASE OF [place] CORONARY 10/31/2018 CORINNE ALMARAZ Ot 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 10/31/2018 CORINNE ALMARAZ Ot R06.02 SHORTNESS OF BREATH 10/31/2018 YESICA HONG APRN Ot T17.908A UNSP FB IN RESP TRACT, PART UNSP CAUSING 10/31/2018 YESICA HONG APRN Ot Y84.4 ASPIRATION OF FLUID CAUSE ABN REACT/COMP 10/31/2018 CORINNE ALMARAZ Ot F41.9 ANXIETY DISORDER, UNSPECIFIED 10/31/2018 CORINNE ALMARAZ Ot I10 ESSENTIAL (PRIMARY) HYPERTENSION 10/31/2018 CORINNE ALMARAZ Ot I25.10 ATHSCL HEART DISEASE OF [place] CORONARY 10/31/2018 CORINNE ALMARAZ Ot 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 10/31/2018 YESICA HONG APRN Ot J84.10 PULMONARY FIBROSIS, UNSPECIFIED 10/31/2018 YESICA HONG APRN Ot 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 LUNG 10/31/2018 YESICA HONG APRN Ot Z95.0 PRESENCE OF CARDIAC PACEMAKER 10/31/2018 JOHN BAGLEY MD Ot I26.99 OTHER PULMONARY EMBOLISM WITHOUT ACUTE C 10/31/2018 JOHN BAGLEY MD Ot 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 10/31/2018 JOHN BAGLEY MD Ot 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 LUNG 10/31/2018 JOHN BAGLEY MD Ot R91.1 SOLITARY PULMONARY NODULE 11/21/2018 JOHN BAGLEY MD Ot I26.99 OTHER PULMONARY EMBOLISM WITHOUT ACUTE C 11/21/2018 JOHN BAGLEY MD Ot 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 Visit Date/Time Discharge Status Pt. Type Provider Facility Loc./Unit Complaint [id number] 06/20/2014 12:09:00 06/20/2014 23:59:59 CLS Outpatient MARY GRACE DON APRN [id number] 05/15/2014 16:37:00 05/15/2014 23:59:59 CLS Outpatient MARY GRACE DON APRN [id number] 01/18/2014 10:34:00 01/18/2014 23:59:59 CLS Outpatient MARY GRACE DON APRN [id number] 08/31/2013 10:57:00 08/31/2013 23:59:59 CLS Outpatient MARY GRACE DON APRN [id number] 06/13/2013 12:46:00 06/13/2013 23:59:59 CLS Outpatient MARY GRACE DON APRN [id number] 12/23/2012 10:01:00 12/23/2012 23:59:59 CLS Outpatient [id number] 10/09/2012 12:49:00 10/09/2012 23:59:59 CLS Outpatient MARY GRACE DON APRN [id number] 04/19/2013 15:06:00 Document Registration [id number] 02/26/2013 15:06:00 Document Registration [id number] 10/31/2018 12:34:00 10/31/2018 23:59:59 CLS Outpatient JOHN BAGLEY MD [facility] RAD FU [id number] 07/12/2018 07:27:00 07/12/2018 23:59:59 CLS Outpatient YESICA HONG APRN [facility] RAD NODULAR DENSITY IN RT UPPER LOBE [id number] 03/18/2018 14:42:00 03/18/2018 15:39:00 DIS Emergency SIVA WHALEN BRIDGE INSTRUCTOR [facility] ER FELL AT [facility], HIT HIS HEAD [id number] 03/05/2018 09:01:00 03/05/2018 11:50:00 DIS Emergency MANUEL BRADSHAW MD [facility] ER FALL [id number] 05/13/2017 11:42:00 05/13/2017 23:59:59 CLS Outpatient CORINNE ALMARAZ [facility] CARD CAD [id number] 01/03/2017 10:06:00 01/03/2017 23:59:59 CLS Outpatient YESICA HONG APRN [facility] RAD ASPIRATION [id number] 11/14/2016 02:33:00 11/14/2016 04:25:00 DIS Emergency MIRYAM AMARAL DO [facility] ER FALL [id number] 03/02/2016 11:30:00 03/02/2016 23:59:59 CLS Outpatient CORINNE ALMARAZ [facility] CARD CAD,HTN,NSVT ,SOB [id number] 04/04/2015 14:44:00 04/04/2015 23:59:59 CLS Outpatient LUCIANA ARVIZU WIRE SETTER [facility] RAD GOIT INSTABILITY HEADACHE [id number] 03/04/2015 11:12:00 03/04/2015 23:59:59 CLS Outpatient CHRIS FERRELL MD [facility] CARD CAD,HTN,SS,TIA [id number] 02/28/2015 11:14:00 02/28/2015 23:59:59 CLS Outpatient DEYSI WARNER APRN [facility] QUICK [id number] 02/26/2015 08:16:00 02/26/2015 23:59:59 CLS Outpatient CHRIS FERRELL MD [facility] CARD CAD,HTN,SS,TIA [id number] 09/29/2014 09:21:00 09/29/2014 10:58:00 DIS Emergency CAR HARRIS MD [facility] ER ALTERED MENTAL STATUS [id number] 07/22/2014 09:02:00 07/22/2014 23:59:59 CLS Outpatient MIRYAM ARVIZU DO [facility] RAD PVD [id number] 07/16/2014 09:04:00 07/16/2014 23:59:59 CLS Outpatient MIRYAM ARVIZU DO [facility] RAD 443.90,CLAUDICATION [id number] 05/15/2014 14:58:00 05/15/2014 15:59:00 DIS Emergency SIVA WHALEN BRIDGE INSTRUCTOR [facility] ER RIGHT HIP PAIN [id number] 05/12/2014 09:33:00 05/12/2014 11:18:00 DIS Emergency STEVEN MARCANO, CAR Lawler [facility] ER BEE STING L FOOT [id number] 05/08/2014 07:47:00 05/09/2014 09:10:00 DIS Outpatient GHASSAN MARCANO, CHRIS Gonzalez [facility] VICKI,BRADYCARDIA,HTN,CAD [id number] 04/08/2014 14:38:00 04/08/2014 17:23:00 DIS Emergency ARTURHANNAH Meyer DO [facility] ER RIGHT LEG PAIN/SWELLING/ BRUISING [id number] 06/05/2013 11:18:00 06/05/2013 23:59:59 CLS Outpatient RIDINGSLUCIANA BRIDGE INSTRUCTOR [facility] RAD L ABD PAIN,L SIDE BACK PAIN T12-L2 [id number] 02/02/2013 17:23:00 02/02/2013 23:59:59 CLS Outpatient [id number] 05/10/2014 10:49:00 Document Registration [id number] 12/21/2012 00:04:00 Document Registration [id number] 05/17/2012 16:07:00 Document Registration [id number] 03/13/2012 05:44:00 Document Registration [id number] 03/07/2012 12:52:00 Document Registration [id number] 08/30/2011 11:04:00 Document Registration [id number] 05/30/2011 09:10:00 Document Registration [id number] 04/04/2015 14:45:35 ACT Document Registration
--- OUTSIDE RECORDS SUMMARY | 2019-01-15 05:51 | XMS REPORT | Continuity of Care Document ---
Author Author [facility] Organization [facility] Address Unknown Phone Unavailable Care Team Providers Care Black Top Roller Name Role Phone MIRYAM ARVIZU DO PCP Insurance Providers Payer Name Policy Number Subscriber Name Relationship Wps Medicare [id number] Armando Milan 18 Self / Same As Patient Enter Insurance Name [id number] Armando Milan 18 Self / Same As Patient Advance Directives Directive Response Recorded Date/Time Advance Directives Yes 05/15/14 3:11pm Health Care Power of Senior Architect/Design Manager Kwesi COLE 05/15/14 3:11pm Organ Donor No 05/15/14 3:11pm Resuscitation Status Full Code 05/15/14 3:11pm Problems Medical Problems Problem Onset Date Status [...] Carbonate/Vitamin D3 10/21/09 04/26/10 Discontinued Phenytoin Sodium 02/28/10 08/08/10 Discontinued Meclizine HCl 1 Each PO QID [...] Response Recorded Date/Time Alcohol Use Denies Use 05/15/2014 3:11pm Recreational Drug Use No 05/15/2014 3:11pm Recent Foreign Travel No 05/15/2014 3:11pm Recent Infectious Disease Exposure No 05/15/2014 3:11pm Hospitalization with Isolation Denies 05/15/2014 3:11pm Smoking Status Never a Smoker 05/15/2014 3:11pm Query Response Start Date Stop Date Smoking Status Never a Smoker Hospital Discharge Instructions No hospital discharge instructions. Plan of Care No plan of care. Functional Status No functional status results. Allergies, Adverse Reactions, Alerts Allergen Type Severity Reaction Status Last Updated Penicillins ([id number]) Allergy Mild RASH Active 03/13/12 Sulfa (Sulfonamide Antibiotics) ([id number]) Allergy Unknown Active 01/07 Tetanus Vaccines & Toxoid ([id number]) Allergy Unknown Active 05/01/10 morphine Adverse Reaction [...] F (97.6 - 99.5) Temperature (Calculated Celsius) 36.70347 degrees C (36.4 - 37.5) Temperature Source Tympanic Pulse Rate (adult) 71 bpm (60 - 90) Respiratory Rate 18 bpm (12 - 24) O2 Sat by Pulse Oximetry 94 % (88 - 100) Blood Pressure 127/86 mm Hg Pain Pain Intensity 10 Height (Feet) 6 feet Height (Inches) 0 inches Height (Calculated Centimeters) 182.691020 cm Weight (Pounds) 185 pounds Weight (Ounces) 0.0 oz Weight (Calculated Grams) 71540.589 gm Weight (Calculated Kilograms) 83.130036 kilograms Calculated BMI 25.09 Results Test Source [...] A COPY OF THE RML REPORT TO [facility] FOR ALL POSITIVE EHRLICHIA CHAFFEENSIS ANTIBODY RESULTS ON THIS TEST. Ehrlichia chaffeensis IgM Antibody May 03, 2009 2:12pm <1:10 - URGENT MESSAGEPLEASE GIVE A COPY OF THE RML REPORT TO [facility] FOR ALL POSITIVE EHRLICHIA CHAFFEENSIS [...] A COPY OF THE RML REPORT TO [facility] FOR ALL POSITIVE EHRLICHIA CHAFFEENSIS [...] SELECTED GROUPS OF HIGH RISK PATIENTS. [employer] CONSENSUS CONFERENCE ON [...] collected/obtained? YSpecimen Description CLEAN CATCH Urine Specific [place] December 21, 2012 12:30am 1.025 H - [...] of tularemia. THIS TEST WAS PERFORMED AT: [facility], [employer]. [address] [place] [address] Princess Montero MD Glucometer May 05, 2010 11:13am 165 MG/DL H 70-110 Comments to Belt Builder: RECOVERY #2 Lab Scanned Report May 30, 2011 9:10am Referred Lab Report [id number] - Estimat Glomerular Filtration Rate May 10, [...] A COPY OF THE RML REPORT TO [facility] FOR ALL POSITIVE EHRLICHIA CHAFFEENSIS ANTIBODY RESULTS ON THIS TEST. Spotted Fever Group IgM Antibody May 03, 2009 2:12pm <1:10 - URGENT MESSAGEPLEASE GIVE A COPY OF THE RML REPORT TO [facility] FOR ALL POSITIVE EHRLICHIA CHAFFEENSIS [...] SELECTED GROUPS OF HIGH RISK PATIENTS. [employer] CONSENSUS CONFERENCE ON [...] Encounter Location Date/Time Departed Emergency Room [facility] 05/15/14 2:58pm Departed Emergency Room [facility] 05/12/14 9:33am Departed Emergency Room [facility] 05/10/14 10:49am
--- NOTE | 2019-01-15 06:11 | ED Fall/Injury ---
General Stated Complaint: FALL Source: patient, EMS, long-term records Exam Limitations: no limitations History of Present Illness Date Seen by Provider: Jan 15, 2019 Time Seen by Provider: 05:53 Initial Comments Patient presents to ER [facility] EMS with chief complaint of a fall just prior to arrival. He was getting up to go use the urinal and use his walker and said that he lost his balance and fell backwards. He didn't strike his head he thinks he was unconscious and disoriented for maybe a minute or 2. The fall was unwitnessed. He is on Xarelto. He's having some pain is new in his left hip and his right shoulder. He endorses a headache globally also in the top of his head though. He has not taken anything for it yet. He denies any nausea fever chills dysuria shortness of breath, cough diarrhea or constipation. He does have baseline occasionally stool incontinence. Patient's been complaining for the past week of some low back pain according to his daughter on the phone the patient does not endorse this morning. He is on Xarelto for pulmonary embolism. Allergies and Home Medications Allergies Coded Allergies: No Known Drug Allergies (Unverified , 01/15/19) Patient Home Medication List Home Medication List Reviewed: Yes Review of Systems Review of Systems Constitutional: No chills, No diaphoresis Eyes: Denies Blindness, Denies Blurred Vision Ears, Nose, Mouth, Throat: denies ear pain, denies ear discharge Respiratory: No cough, No short of breath Cardiovascular: No chest pain, No edema Gastrointestinal: No abdominal pain, No constipation, No diarrhea Musculoskeletal: see HPI Past Fntllhv-Oklvwy-Vvrdrf Hx Patient Social History Alcohol Use: Denies Use Recreational Drug Use: No Smoking Status: Never a Smoker Physical Exam Vital Signs Vital Signs - First Documented 01/15/19 05:45 Temp 98.9 Pulse 60 Resp 18 B/P (MAP) 132/72 (92) Pulse Ox 94 O2 Delivery Room Air Capillary Refill : Height, Weight, BMI Height: '" Weight: lbs. oz. kg; BMI Method: General Appearance: WD/WN, no apparent distress HEENT: PERRL/EOMI, normal ENT inspection, TMs normal, pharynx normal, other ( atraumatic head without Beckett sign, raccoon eyes or hemotympanum) Neck: non-tender, full range of motion, supple, normal inspection Cardiovascular: normal peripheral pulses, regular rate, rhythm Respiratory: lungs clear, normal breath sounds, no respiratory distress, no accessory muscle use Peripheral Pulses: 2+ Radial Pulses (R), 2+ Radial Pulses (L) Gastrointestinal: normal bowel sounds, non tender, soft, no organomegaly Extremities: normal inspection, no pedal edema, no calf tenderness, normal capillary refill Neurologic/Psychiatric: alert, normal mood/affect, oriented x 3 Skin: normal color, warm/dry Progress/Results/Core Measures Results/Orders Lab Results Laboratory Tests Test 01/15/19 05:45 Range/Units White Blood Count 6.2 4.3-11.0 10^3/uL Red Blood Count 5.08 4.35-5.85 10^6/uL Hemoglobin 16.0 13.3-17.7 G/DL Hematocrit 47 40-54 % Mean Corpuscular Volume 92 80-99 FL Mean Corpuscular Hemoglobin 32 25-34 PG Mean Corpuscular Hemoglobin Concent 34 32-36 G/DL Red Cell Distribution Width 13.8 10.0-14.5 % Platelet Count 155 130-400 10^3/uL Mean Platelet Volume 10.8 H 7.4-10.4 FL Neutrophils (%) (Auto) 69 42-75 % Lymphocytes (%) (Auto) 18 12-44 % Monocytes (%) (Auto) 9 0-12 % Eosinophils (%) (Auto) 4 0-10 % Basophils (%) (Auto) 0 0-10 % Neutrophils # (Auto) 4.2 1.8-7.8 X 10^3 Lymphocytes # (Auto) 1.1 1.0-4.0 X 10^3 Monocytes # (Auto) 0.6 0.0-1.0 X 10^3 Eosinophils # (Auto) 0.2 0.0-0.3 10^3/uL Basophils # (Auto) 0.0 0.0-0.1 10^3/uL Sodium Level 140 135-145 MMOL/L Potassium Level 4.1 3.6-5.0 MMOL/L Chloride Level 105 98-107 MMOL/L Carbon Dioxide Level 23 21-32 MMOL/L Anion Gap 12 5-14 MMOL/L Blood Urea Nitrogen 33 H 7-18 MG/DL Creatinine 1.19 0.60-1.30 MG/DL Estimat Glomerular Filtration Rate 58 BUN/Creatinine Ratio 28 Glucose Level 95 70-105 MG/DL Calcium Level 9.6 8.5-10.1 MG/DL Corrected Calcium 9.4 8.5-10.1 MG/DL Total Bilirubin 0.6 0.1-1.0 MG/DL Aspartate Amino Transf (AST/SGOT) 17 5-34 U/L Alanine Aminotransferase (ALT/SGPT) 15 0-55 U/L Alkaline Phosphatase 49 40-136 U/L Total Protein 6.6 6.4-8.2 GM/DL Albumin 4.2 3.2-4.5 GM/DL My Orders Orders - NIYAH NIELSON Cbc With Automated Diff (01/15/19 06:27) Comprehensive Metabolic Panel (01/15/19 06:27) Acetaminophen Tablet (Tylenol Tablet) (01/15/19 06:45) Medications Given in ED Current Medications Medications Dose Ordered Sig/Sylwia Route Start Time Stop Time Status Last Admin Dose Admin Acetaminophen 1,000 mg ONCE ONCE PO 01/15/19 06:45 01/15/19 06:46 DC 01/15/19 06:55 1,000 MG Vital Signs/I&O 01/15/19 05:45 Temp 98.9 Pulse 60 Resp 18 B/P (MAP) 132/72 (92) Pulse Ox 94 O2 Delivery Room Air Progress Progress Note : Time: 06:10 Progress Note Right shoulder x-ray, left hip x-ray, noncontrast CT of the head and C-spine. He would like some Tylenol for his headache. Diagnostic Imaging Diagonstic Imaging: CT (noncontrast) Plain Films/CT/US/NM/MRI: c-spine, head Comments No acute intracalvarial hemorrhage, mass effect, midline shift or tumor. No calvarial fracture or cervical vertebral fracture or subluxation. Advance degenerative disease noted. [facility] [place] [place] NAME: ARMANDO MILAN [facility] REC#: [id number] PT STATUS: REG ER : 1930 PHYSICIAN: HANNAH SIDDIQUI DO ADMIT DATE: 01/15/19/ER Draft Date of Exam:01/15/19 CT HEAD/CERVICAL SPINE WO PROCEDURE: CT head and CT cervical spine without contrast. TECHNIQUE: Multiple contiguous axial images were obtained through the brain and cervical spine without the use of intravenous contrast. Sagittal and coronal reformations through the cervical spine were then performed. Auto Exposure Controls were utilized during the CT exam to meet ALARA standards for radiation dose reduction. INDICATION: Fall, trauma. COMPARISON: 11/14/2016. FINDINGS: CT head: No hyperdense hemorrhage or space-occupying mass. No hydrocephalus or midline shift. Carmona-white matter differentiation is preserved. Global atrophy with minimal periventricular white matter hypoattenuation is unchanged. No acute skull fracture. Paranasal sinuses and mastoid air cells are clear. Bilateral cataract surgery has been performed. CT cervical spine: No acute fracture or traumatic malalignment of the cervical spine. Straightening of the cervical spine is likely degenerative in nature. Severe degenerative disc disease is present throughout multiple levels of the cervical spine. No areas of critical spinal stenosis secondary to degenerative changes. Airway remains patent. No cervical lymphadenopathy. Probable left hemithyroidectomy. Lung apices are clear. IMPRESSION: 1. No acute intracranial process or skull fracture. 2. No acute fracture or traumatic malalignment of the cervical spine. 3. Moderate to severe cervical spondylosis. Dictated on workstation # [id number] Dict: 01/15/19 0653 Trans: 01/15/19 0658 KB [id number] Interpreted by: DONTE MEYER MD Electronically signed by: Reviewed: Reviewed by Me Diagonstic Imaging: Xray Plain Films/CT/US/NM/MRI: other (right shoulder) Comments No acute osseous abnormality or dislocation. Reviewed: Reviewed by Me Diagonstic Imaging: Xray Plain Films/CT/US/NM/MRI: pelvis, hip (left) Comments No acute osseous abnormality. Reviewed: Reviewed by Me Diagonstic Imaging: Xray Plain Films/CT/US/NM/MRI: chest (1 view) Comments No acute osseous abnormality. No acute cardiopulmonary processes noted. Calcific aorta and pacemaker noted. Reviewed: Reviewed by Me Departure Impression Primary Impression: Fall from standing Qualified Codes: W19.XXXA - Unspecified fall, initial encounter Additional Impressions: Right shoulder pain Qualified Codes: M25.511 - Pain in right shoulder Hip pain, left Disposition: 01 HOME, SELF-CARE Condition: Stable Departure-Patient Inst. Decision time for Depature: 07:15 Referrals: JOHN BAGLEY MD Patient Instructions: Preventing Falls in the Older Adult, Hip Pain in Older People Add. Discharge Instructions: Tylenol 1000 mg every 8 hours as necessary for pain. Apply an ice pack to the shoulder or hip as necessary for pain first 1 or 2 days. If your symptoms persist follow-up with primary care. NIYAH NIELSON Jan 15, 2019 06:11
[2019-01-15 06:32] LABS: BASOPHILS % (AUTO) 0 % (0-10); EOSINOPHILS # (AUTO) 0.2 10^3/uL (0.0-0.3); EOSINOPHILS % (AUTO) 4 % (0-10); HEMATOCRIT 47 % (40-54); LYMPHOCYTES # (AUTO) 1.1 X 10^3 (1.0-4.0); LYMPHOCYTES % (AUTO) 18 % (12-44); MEAN CORPUSCULAR HEMOGLOBIN 32 PG (25-34); MEAN CORPUSCULAR HGB CONC 34 G/DL (32-36); MEAN CORPUSCULAR VOLUME 92 FL (80-99); MEAN PLATELET VOLUME 10.8 FL (7.4-10.4); MONOCYTES # (AUTO) 0.6 X 10^3 (0.0-1.0); MONOCYTES % (AUTO) 9 % (0-12); NEUTROPHILS # (AUTO) 4.2 X 10^3 (1.8-7.8); NEUTROPHILS % (AUTO) 69 % (42-75); PLATELET COUNT 155 10^3/uL (130-400); RED CELL DISTRIBUTION WIDTH 13.8 % (10.0-14.5); WHITE BLOOD COUNT 6.2 10^3/uL (4.3-11.0)
[2019-01-15] MEDS ORDERED: ACETAMINOPHEN 500 MG TAB (TYLENOL) PO ONE (06:45)
[2019-01-15 06:47] LABS: CREATININE SERUM 1.19 MG/DL (0.60-1.30); POTASSIUM 4.1 MMOL/L (3.6-5.0)
[2019-01-15 06:48] LABS: ALBUMIN 4.2 GM/DL (3.2-4.5); BILIRUBIN,TOTAL 0.6 MG/DL (0.1-1.0); CALCIUM 9.6 MG/DL (8.5-10.1); TOTAL PROTEIN 6.6 GM/DL (6.4-8.2)
--- NOTE | 2019-01-15 06:58 | Diagnostic Imaging Report ---
PROCEDURE: CT head and CT cervical spine without contrast. TECHNIQUE: Multiple contiguous axial images were obtained through the brain and cervical spine without the use of intravenous contrast. Sagittal and coronal reformations through the cervical spine were then performed. Auto Exposure Controls were utilized during the CT exam to meet ALARA standards for radiation dose reduction. INDICATION: Fall, trauma. COMPARISON: 11/14/2016. FINDINGS: CT head: No hyperdense hemorrhage or space-occupying mass. No hydrocephalus or midline shift. Carmona-white matter differentiation is preserved. Global atrophy with minimal periventricular white matter hypoattenuation is unchanged. No acute skull fracture. Paranasal sinuses and mastoid air cells are clear. Bilateral cataract surgery has been performed. CT cervical spine: No acute fracture or traumatic malalignment of the cervical spine. Straightening of the cervical spine is likely degenerative in nature. Severe degenerative disc disease is present throughout multiple levels of the cervical spine. No areas of critical spinal stenosis secondary to degenerative changes. Airway remains patent. No cervical lymphadenopathy. Probable left hemithyroidectomy. Lung apices are clear. IMPRESSION: 1. No acute intracranial process or skull fracture. 2. No acute fracture or traumatic malalignment of the cervical spine. 3. Moderate to severe cervical spondylosis. Dictated by: Dictated on workstation # [id number]
--- NOTE | 2019-01-15 07:15 | Diagnostic Imaging Report ---
INDICATION: Pelvic and left hip pain. COMPARISON: None available. TECHNIQUE: AP pelvis with AP and frog-leg lateral views of the left hip. FINDINGS: No acute fracture or traumatic malalignment. Mild to moderate degenerative changes of the left hip. There are also degenerative changes of lumbar spine. Prior hernia repair is seen in the anterior abdominal wall. SI joints are normal in alignment. Vascular calcifications are noted. IMPRESSION: No acute fracture of the left hip. Dictated by: Dictated on workstation # [id number]
--- NOTE | 2019-01-15 07:15 | Diagnostic Imaging Report ---
INDICATION: Right shoulder pain. COMPARISON: None available. TECHNIQUE: 3 views of the right shoulder were obtained. FINDINGS: No acute fracture or traumatic malalignment. Complete loss of the subacromial space with osseous remodeling of the undersurface of the acromion. No abnormal soft tissue mineralizations. Calcified right upper lobe pulmonary granuloma. IMPRESSION: 1. Moderate to severe glenohumeral rotator cuff arthropathy. 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 2. No acute fracture. Dictated by: Dictated on workstation # [id number]
--- NOTE | 2019-01-15 07:17 | Diagnostic Imaging Report ---
Indication: Chest pain. Comparison: 03/18/2018. Findings: Stable left pectoral transvenous dual-chamber pacemaker. Stable right upper lobe calcified pulmonary granuloma. Otherwise visualized lungs are clear. Posterior lower lobes are poorly evaluated by portable radiography. No pleural effusion or pneumothorax. Stable enlargement of the cardiac silhouette. No features of pulmonary edema. Impression: No acute process by portable radiography. Dictated by: Dictated on workstation # [id number]
--- NOTE | 2019-01-15 07:21 | NUR ---
SKILLED NURSING CALLEAD TO COME GET PATIENT.
[2019-01-15 08:17] VITALS: BP 138/84
== END 2019-01-15 08:22 | disposition home or self-care (01) ==
LOC: ER 05:44 → MERGE 05:44 → ER 08:22
DX: M25.511 Pain in right shoulder (principal); M25.552 Pain in left hip; Z79.01 Long term (current) use of anticoagulants; Z86.711 Personal history of pulmonary embolism; W18.30XA Fall on same level, unspecified, initial encounter
CPT/HCPCS: 36415; 70450; 71045; 72125; 73030; 80053; 85025

== ENCOUNTER 2019-01-28 14:39 | Emergency (ER) | payer MEDICARE, OTHER, MEDICAID ==
[~2019-01-28] VITALS: Ht 182.9 cm; Wt 97.1 kg
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
[2019-01-28 15:03] LABS: BASOPHILS % (AUTO) 0 % (0-10); EOSINOPHILS # (AUTO) 0.2 10^3/uL (0.0-0.3); EOSINOPHILS % (AUTO) 3 % (0-10); HEMATOCRIT 44 % (40-54); HEMOGLOBIN 15.2 G/DL (13.3-17.7); LYMPHOCYTES # (AUTO) 1.3 X 10^3 (1.0-4.0); LYMPHOCYTES % (AUTO) 20 % (12-44); MEAN CORPUSCULAR HEMOGLOBIN 32 PG (25-34); MEAN CORPUSCULAR HGB CONC 35 G/DL (32-36); MEAN CORPUSCULAR VOLUME 92 FL (80-99); MEAN PLATELET VOLUME 10.7 FL (7.4-10.4); MONOCYTES # (AUTO) 0.7 X 10^3 (0.0-1.0); MONOCYTES % (AUTO) 11 % (0-12); NEUTROPHILS # (AUTO) 4.3 X 10^3 (1.8-7.8); NEUTROPHILS % (AUTO) 66 % (42-75); PLATELET COUNT 164 10^3/uL (130-400); RED CELL DISTRIBUTION WIDTH 13.6 % (10.0-14.5); WHITE BLOOD COUNT 6.5 10^3/uL (4.3-11.0)
[2019-01-28 15:10] VITALS: BP_SYST 135; BP_SYST 137; BP_SYST 149; BP_DIAS 103; BP_DIAS 80; BP_DIAS 86
[2019-01-28 15:18] LABS: ALANINE AMINOTRANSFERASE 14 U/L (0-55); ALKALINE PHOSPHATASE 46 U/L (40-136); BILIRUBIN,TOTAL 0.3 MG/DL (0.1-1.0); BUN/CREATININE RATIO 23; CALCIUM 9.8 MG/DL (8.5-10.1); CARBON DIOXIDE 24 MMOL/L (21-32); CHLORIDE 105 MMOL/L (98-107); CREATININE SERUM 1.24 MG/DL (0.60-1.30); GFR ESTIMATED 55; GLUCOSE 97 MG/DL (70-105); POTASSIUM 4.2 MMOL/L (3.6-5.0); SODIUM 142 MMOL/L (135-145); TOTAL PROTEIN 6.5 GM/DL (6.4-8.2)
--- NOTE | 2019-01-28 15:46 | Diagnostic Imaging Report ---
EXAMINATION: PA portable chest. INDICATION: Traumatic chest injury sustained during fall. COMPARISON: Multiple priors, most recent performed on 01/15/2019. FINDINGS: The patient is slightly rotated. Dual lead left transvenous pacemaker and leads are unchanged in position. Unchanged calcified pulmonary nodule in the right upper lung. The lungs are otherwise clear and the pulmonary vasculature is normal. No pneumothorax or large pleural effusion. The cardiomediastinal silhouette is unchanged. Calcified mediastinal and hilar lymph nodes are again demonstrated. No acute osseous abnormality is identified. IMPRESSION: No acute chest disease. No significant change from prior. Dictated by: Dictated on workstation # [id number]
--- NOTE | 2019-01-28 15:47 | NUR ---
PT BACK TO ED ROOM FROM CT, PT DENIES ANY NEEDS OR C/O AT THIS TIME, PT SHOWS NO S/S OF DISTRESS, VS ASSESSED AND STABLE, WILL CONTINUE TO MONITOR
--- NOTE | 2019-01-28 15:57 | Diagnostic Imaging Report ---
PROCEDURE: CT head and CT cervical spine without contrast. TECHNIQUE: Multiple contiguous axial images were obtained through the brain and cervical spine without the use of intravenous contrast. Sagittal and coronal reformations through the cervical spine were then performed. Auto Exposure Controls were utilized during the CT exam to meet ALARA standards for radiation dose reduction. INDICATION: Traumatic head/neck injury sustained during fall. COMPARISON: CT head/cervical spine performed on 01/15/2019. FINDINGS - CT BRAIN: BRAIN: No parenchymal hemorrhage, midline shift or mass effect. Carmona-white matter differentiation is intact. No acute infarct. Mild periventricular and subcortical low-density white matter changes. Moderate prominence of the ventricles and Sulci consistent with cortical and cerebellar parenchymal volume loss. EXTRA-AXIAL SPACES: No subdural or epidural collections. ORBITS AND PARANASAL SINUSES: Visualized orbits and globes are intact. Visualized paranasal sinuses and mastoid air cells are clear. CALVARIUM AND SOFT TISSUES: The calvarium is intact. No fractures or suspicious bony lesions. The extracranial soft tissues are unremarkable. FINDINGS - CT CERVICAL SPINE: Multiple images are degraded by patient motion which diminishes detail, and interpretation was made in light of this technical confine. SPINE: No fracture. No acute osseous abnormalities. There is straightening of cervical lordosis. No subluxation. There is moderate multilevel degenerative loss of disc height with endplate osteophytes. No locked or perched facet. SOFT TISSUES AND LUNG APICES: Soft tissues unremarkable. There is mild biapical pleural-parenchymal scarring. Visualized lung apices are otherwise clear. IMPRESSION: - CT BRAIN: No acute intracranial pathology. No significant change from prior. IMPRESSION: - CT CERVICAL SPINE: Multilevel degenerative change of the cervical spine, without evidence of acute fracture or subluxation. Dictated by: Dictated on workstation # [id number]
--- NOTE | 2019-01-28 16:26 | NUR ---
PATIENT REQUEST WATER BECAUSE SHE THOUGHT IT WENT DOWN REPORTS THAT WATER WENT DOKWN WITHOUT PROBLEM .
--- NOTE | 2019-01-28 16:56 | NUR ---
PT RESTING QUIETLY WITH EYES CLOSED, PT EASY TO AROUSE, PT SHOWS NO S/S OF DISTRESS, VS ASSESSED AND STABLE, WILL CONTINUE TO MONITOR
--- NOTE | 2019-01-28 18:00 | NUR ---
PT CONTINUES TO REST QUIETLY IN ED BED WITH EYES CLOSED, PT EASY TO AROUSE, PT SHOWS NO S/S OF DISTRESS, WILL CONTINUE TO MONITOR
--- NOTE | 2019-01-28 19:00 | NUR ---
NO CHANGES FROM PRIOR ASSESSMENT
== END 2019-01-28 19:32 | disposition home or self-care (01) ==
LOC: EDUNIT# 14:39 → ER 14:41
DX: S09.90XA Unspecified injury of head, initial encounter (principal); I25.10 Atherosclerotic heart disease of native coronary artery without angina pectoris; I10 Essential (primary) hypertension; K21.9 Gastro-esophageal reflux disease without esophagitis; R40.2142 Coma scale, eyes open, spontaneous, at arrival to emergency department; R40.2252 Coma scale, best verbal response, oriented, at arrival to emergency department; R40.2362 Coma scale, best motor response, obeys commands, at arrival to emergency department; E03.9 Hypothyroidism, unspecified; F41.9 Anxiety disorder, unspecified; F32.9 Major depressive disorder, single episode, unspecified; Z90.49 Acquired absence of other specified parts of digestive tract; Z87.820 Personal history of traumatic brain injury; Z87.19 Personal history of other diseases of the digestive system; Z86.73 Personal history of transient ischemic attack (TIA), and cerebral infarction without residual deficits; Z88.0 Allergy status to penicillin; Z88.2 Allergy status to sulfonamides; Z88.7 Allergy status to serum and vaccine; Z91.040 Latex allergy status; Z88.8 Allergy status to other drugs, medicaments and biological substances; Z88.5 Allergy status to narcotic agent; Z79.02 Long term (current) use of antithrombotics/antiplatelets; Z90.89 Acquired absence of other organs; Z98.890 Other specified postprocedural states; Z95.0 Presence of cardiac pacemaker; Z96.653 Presence of artificial knee joint, bilateral; Z86.711 Personal history of pulmonary embolism
CPT/HCPCS: 36415; 70450; 71045; 72125; 80053; 82962; 83880; 84484; 85025; 86141; 93005

== ENCOUNTER 2019-02-20 16:04 | Emergency (ER) | payer MEDICARE, OTHER, MEDICAID ==
[~2019-02-20] VITALS: Ht 182.9 cm; Wt 98.9 kg
[2019-02-20] MEDS ORDERED: RT-ALBUTEROL/IPRATROPIUM 3 ML (DUONEB) VIAL INH ONE (16:45)
--- NOTE | 2019-02-20 17:09 | Diagnostic Imaging Report ---
PROCEDURE: CT head and CT cervical spine without contrast. TECHNIQUE: Multiple contiguous axial images were obtained through the brain and cervical spine without the use of intravenous contrast. Sagittal and coronal reformations through the cervical spine were then performed. Auto Exposure Controls were utilized during the CT exam to meet ALARA standards for radiation dose reduction. INDICATION: Fall. Headache. COMPARISON: 01/28/2019. CT HEAD: FINDINGS: There is no evidence of intracranial hemorrhage. There is diffuse cortical atrophy again noted. Ventricles are mildly prominent consistent with atrophic state. No extra-axial fluid collections. Periventricular white matter changes which are stable. Mastoid air cells are clear. Paranasal sinuses are clear. No calvarial fracture. IMPRESSION: No acute abnormalities when compared with previous exam. CT CERVICAL SPINE: FINDINGS: Sagittal and coronal reformatted images show straightening of the normal lordotic curvature with degenerative disc and facet disease from C3 through C7. There is loss of disc space with anterior bony bridging of the endplates from C4 through C7. There is some hypertrophy along the uncovertebral joints as well. No central stenosis. No evidence of acute fractures. The surrounding soft tissues appear normal. IMPRESSION: Advanced degenerative cervical disc disease. No acute abnormalities. Dictated by: Dictated on workstation # [id number]
--- NOTE | 2019-02-20 17:10 | Diagnostic Imaging Report ---
INDICATION: Fall. Chest and head pain. COMPARISON: 01/28/2019. FINDINGS: Portable chest. The lungs are well aerated. There are no infiltrates. No pneumothorax or pleural effusions. The heart is not enlarged. Pacemaker on the left appears unchanged. Granulomas are present bilaterally, unchanged. IMPRESSION: No acute abnormalities. Dictated by: Dictated on workstation # [id number]
[2019-02-20 17:19] LABS: BASOPHILS % (AUTO) 0 % (0-10); EOSINOPHILS # (AUTO) 0.2 10^3/uL (0.0-0.3); EOSINOPHILS % (AUTO) 3 % (0-10); HEMATOCRIT 44 % (40-54); HEMOGLOBIN 14.9 G/DL (13.3-17.7); LYMPHOCYTES # (AUTO) 1.1 X 10^3 (1.0-4.0); LYMPHOCYTES % (AUTO) 21 % (12-44); MEAN CORPUSCULAR HEMOGLOBIN 32 PG (25-34); MEAN CORPUSCULAR HGB CONC 34 G/DL (32-36); MEAN CORPUSCULAR VOLUME 92 FL (80-99); MEAN PLATELET VOLUME 10.6 FL (7.4-10.4); MONOCYTES # (AUTO) 0.6 X 10^3 (0.0-1.0); MONOCYTES % (AUTO) 11 % (0-12); NEUTROPHILS # (AUTO) 3.4 X 10^3 (1.8-7.8); NEUTROPHILS % (AUTO) 65 % (42-75); PLATELET COUNT 145 10^3/uL (130-400); RED CELL DISTRIBUTION WIDTH 13.2 % (10.0-14.5); WHITE BLOOD COUNT 5.2 10^3/uL (4.3-11.0)
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
[2019-02-20 17:33] LABS: ALBUMIN 3.9 GM/DL (3.2-4.5); BILIRUBIN,TOTAL 0.3 MG/DL (0.1-1.0); CALCIUM 9.4 MG/DL (8.5-10.1); CREATININE SERUM 1.14 MG/DL (0.60-1.30); TOTAL PROTEIN 6.4 GM/DL (6.4-8.2)
--- NOTE | 2019-02-20 18:05 | NUR ---
PLACED BACK ON 02 @2L SAO2 DOWN TO 86% ON ROOM AIR. ORDER FOUND ON [facility] HOME MED LIST THAT HE IS TO BE ON 02 TO KEEP SAO2 ABOVE 90% NOTIFIED.
[2019-02-20 18:08] VITALS: BP 154/86
[2019-02-20 18:09] LABS: BILIRUBIN,URINE NEGATIVE (NEGATIVE); CLARITY,URINE CLEAR; COLOR,URINE YELLOW; GLUCOSE, URINE (UA) NEGATIVE (NEGATIVE); KETONES,URINE NEGATIVE (NEGATIVE); LEUKOCYTE ESTERASE ,URINE 1+ (NEGATIVE); NITRITE,URINE NEGATIVE (NEGATIVE); PH,URINE 6.5 (5-9); PROTEIN,URINE NEGATIVE (NEGATIVE); UROBILINOGEN,URINE NORMAL (NORMAL)
[2019-02-20 18:16] LABS: BACTERIA,URINE TRACE /HPF; SQUAMOUS EPITHELIAL CELL,UR 0-2 /HPF
[2019-02-20] MEDS ORDERED: ALBU2.5V4 INH (18:22)
--- NOTE | 2019-02-20 19:07 | NUR ---
REPORT TO KEIRA CHOPRA TO COME BACK AND GET PATIENT. CALLED AND GAVE UPDATE ON PATIENT ON DAUGHTER.
[2019-02-20 20:28] VITALS: BP 145/82
== END 2019-02-20 20:29 | disposition home or self-care (01) ==
LOC: EDUNIT# 16:04 → ER 16:06
DX: R06.2 Wheezing (principal); R09.02 Hypoxemia; I25.10 Atherosclerotic heart disease of native coronary artery without angina pectoris; I10 Essential (primary) hypertension; K21.9 Gastro-esophageal reflux disease without esophagitis; E03.9 Hypothyroidism, unspecified; F41.9 Anxiety disorder, unspecified; F32.9 Major depressive disorder, single episode, unspecified; R40.2142 Coma scale, eyes open, spontaneous, at arrival to emergency department; R40.2252 Coma scale, best verbal response, oriented, at arrival to emergency department; R40.2362 Coma scale, best motor response, obeys commands, at arrival to emergency department; Z90.49 Acquired absence of other specified parts of digestive tract; Z87.19 Personal history of other diseases of the digestive system; Z86.73 Personal history of transient ischemic attack (TIA), and cerebral infarction without residual deficits; Z88.0 Allergy status to penicillin; Z88.2 Allergy status to sulfonamides; Z88.7 Allergy status to serum and vaccine; Z90.89 Acquired absence of other organs; Z96.653 Presence of artificial knee joint, bilateral; Z95.0 Presence of cardiac pacemaker; Z91.040 Latex allergy status; Z88.8 Allergy status to other drugs, medicaments and biological substances; Z79.02 Long term (current) use of antithrombotics/antiplatelets; Z79.01 Long term (current) use of anticoagulants; W01.0XXA Fall on same level from slipping, tripping and stumbling without subsequent striking against object, initial encounter; Y92.009 Unspecified place in unspecified non-institutional (private) residence as the place of occurrence of the external cause
CPT/HCPCS: 36415; 70450; 71045; 72125; 80053; 81000; 83880; 85025; 86141; 87088; 94640

== ENCOUNTER → 2019-06-06 | Outpatient (CLI) | payer MEDICARE, OTHER, MEDICAID ==
[~2019-06-06] MED LIST changes: +ALBU2.5V4 INH; +CATHETER FLUSH 10 ML SYR IV PRN; +REGADENOSON 0.4 MG/5 ML SYR (LEXISCAN) IV ONE
[2019-06-06 13:43] VITALS: BP 149/82
--- NOTE | 2019-06-06 22:10 | STRESS TEST ---
DATE OF SERVICE: 06/06/2019 LEXISCAN MYOVIEW STRESS TEST Baseline heart rate is 60. Baseline blood pressure is 153/80. Baseline EKG is sinus rhythm with no ischemic changes. In summary, the patient was injected with 9.75 mCi of technetium-99 Myoview and the resting images were obtained. Then, the patient received 0.4 mg of Lexiscan followed by 31.9 mCi of technetium-99 Myoview. Throughout the test, there were no EKG changes. The resting and stress images were reviewed and compared in the short axis, horizontal long axis, and vertical long axis views. Review of the images showed diaphragmatic attenuation with good radiotracer uptake, no significant ischemia or infarction. SSS is 2, SDS 2, TID value 0.99. On the gated images, the left ventricle appeared to be normal size with normal contractility. Calculated ejection fraction 68%. CONCLUSION: 1. The patient tolerated Lexiscan well. 2. Diaphragmatic attenuation with typical male pattern with no significant ischemia or infarction on SPECT images. 3. Normal left ventricular size with normal contractility. Calculated ejection fraction 68%. Job ID: [id number] DocumentID: [id number] Dictated Date: 06/06/2019 17:39:20 [facility] Date: 06/06/2019 22:10:31 Dictated By: CHRIS FERRELL MD
== END ==
LOC: CARD 11:04
PROVIDERS: ATTEND Physician Assistant
DX: I07.1 Rheumatic tricuspid insufficiency (principal); I25.10 Atherosclerotic heart disease of native coronary artery without angina pectoris; K21.9 Gastro-esophageal reflux disease without esophagitis; I49.5 Sick sinus syndrome
CPT/HCPCS: 78452; 93017; 93306